=== PATIENT | male | born 1960 | race Caucasian/White ===

== ENCOUNTER 2019-04-04 05:23 | Inpatient (IN) | payer OTHER ==
[2019-04-04 05:58] LABS: Absolute Lymphocytes (CBC) 1.9 K/uL (0.7-4.9); Absolute Monocytes 0.8 K/uL (0.1-1.3); Absolute Neutrophil 8.6 K/uL (1.8-8.0); Basophils % 0.6 % (0-1.3); Eosinophils % 0.4 % (0-4.4); Hematocrit 46.9 % (39.6-49.0); Lymphocytes % 16.3 % (15.3-44.8); MPV 7.8 fL (7.6-11.3); Monocytes % 7.4 % (3.3-12.3)
[2019-04-04] MEDS ORDERED: ONDANSETRON 4 MG/2 ML VIAL ONE (06:09)
[2019-04-04] MEDS ORDERED: MORPHINE 4 MG/ML SYR ONE (06:09)
[2019-04-04 06:17] LABS: Albumin 3.5 g/dL (3.4-5.0); Bilirubin Direct 0.1 mg/dL (0-0.2); Bilirubin Total 0.4 mg/dL (0.2-1.0); Potassium 3.8 mmol/L (3.5-5.1); Protein, Total 8.3 g/dL (6.4-8.2)
[2019-04-04] MEDS ORDERED: LORazepam 2 MG/ML VIAL ONE ×2 (06:39→09:01)
[2019-04-04 07:13] LABS: Urine Blood NEGATIVE (NEG); Urine Glucose NEGATIVE (NEG); Urine Protein 1+ (NEG); Urine pH 6.5 (5.0-7.0)
[2019-04-04 07:25] LABS: Urine RBC NONE SEEN /HPF (NONE SEEN)
[2019-04-04 07:26] LABS: Urine Amorphous Sediment 2+ /HPF (NONE SEEN); Urine Bacteria <20 /HPF (NONE SEEN); Urine Culture Reflex Order NOT NEEDED
--- NOTE | 2019-04-04 08:13 | EDPHYS ---
Physician Documentation [facility] Name: Chon Lopez Age: 58 yrs Sex: Male : 1960 Arrival Date: 04/04/2019 Time: 05:27 Bed 5 Private MD: ED Physician Laith Albarado HPI: 04/04 06:53 This 58 yrs old Male presents to ER via Ambulatory with complaints of snw Abdominal Pain. 06:53 The patient presents with abdominal pain in the left upper quadrant, in the left lower snw quadrant. Onset: The symptoms/episode began/occurred suddenly, 2 day(s) ago, and became persistent. The symptoms do not radiate. Associated signs and symptoms: Pertinent positives: nausea and vomiting. The symptoms are described as constant, with exacerbations. Severity of pain: At its worst the pain was moderate severe. It is unknown whether or not the patient has had similar symptoms in the past. The patient has not recently seen a physician. Historical: - Allergies: 05:37 No Known Allergies; bb - Home Meds: 05:37 None [Active]; bb - PMHx: 05:37 Kidney stones; bb - PSHx: 05:37 Appendectomy; shoulder surgery; bb - Immunization history:: Adult Immunizations up to date. - Social history:: Smoking status: Patient/guardian denies using tobacco. - Ebola Screening: : No symptoms or risks identified at this time. ROS: 06:52 Constitutional: Negative for fever, chills, and weight loss, Eyes: Negative for injury, snw pain, redness, and discharge, ENT: Negative for injury, pain, and discharge, Neck: Negative for injury, pain, and swelling, Cardiovascular: Negative for chest pain, palpitations, and edema, Respiratory: Negative for shortness of breath, cough, wheezing, and pleuritic chest pain, Back: Negative for injury and pain, : Negative for injury, bleeding, discharge, and swelling, MS/Extremity: Negative for injury and deformity, Skin: Negative for injury, rash, and discoloration, Neuro: Negative for headache, weakness, numbness, tingling, and seizure. 06:52 Abdomen/GI: Positive for abdominal pain, nausea, vomiting, of the left upper quadrant and left lower quadrant. Exam: 06:49 Constitutional: This is a well developed, well nourished patient who is awake, alert, snw and anxious. Head/Face: Normocephalic, atraumatic. Eyes: Pupils equal round and reactive to light, extra-ocular motions intact. Lids and lashes normal. Conjunctiva and sclera are non-icteric and not injected. Cornea within normal limits. Periorbital areas with no swelling, redness, or edema. ENT: Nares patent. No nasal discharge, no septal abnormalities noted. Tympanic membranes are normal and external auditory canals are clear. Oropharynx with no redness, swelling, or masses, exudates, or evidence of obstruction, uvula midline. Mucous membranes moist. Neck: Trachea midline, no thyromegaly or masses palpated, and no cervical lymphadenopathy. Supple, full range of motion without nuchal rigidity, or vertebral point tenderness. No Meningismus. Chest/axilla: Normal chest wall appearance and motion. Nontender with no deformity. No lesions are appreciated. Cardiovascular: Regular rate and rhythm with a normal S1 and S2. No gallops, murmurs, or rubs. Normal PMI, no JVD. No pulse deficits. 06:49 Back: No spinal tenderness. No costovertebral tenderness. Full range of motion. Skin: Warm, dry with normal turgor. Normal color with no rashes, no lesions, and no evidence of cellulitis. MS/ Extremity: Pulses equal, no cyanosis. Neurovascular intact. Full, normal range of motion. Neuro: Awake and alert, GCS 15, oriented to person, place, time, and situation. Cranial nerves II-XII grossly intact. Motor strength 5/5 in all extremities. Sensory grossly intact. Cerebellar exam normal. Normal gait. Psych: Awake, alert, with orientation to person, place and time. Behavior, mood, and affect are within normal limits. 06:49 Respiratory: the patient does not display signs of respiratory distress, Respirations: shallow respirations, tachypnea, Breath sounds: are clear throughout. 06:49 Abdomen/GI: Inspection: obese Bowel sounds: diminished, in the left upper quadrant and left lower quadrant, Palpation: moderate abdominal tenderness, in all quadrants. Vital Signs: 05:37 BP 155 / 99; Pulse 103; Resp 18 S; Temp 98.1(O); Pulse Ox 96% on R/A; Weight 102.06 kg bb (R); Height 5 ft. 10 in. (177.80 cm) (R); Pain 5/10; 06:30 Pulse Ox 90% on R/A; rr5 06:35 Pulse Ox 98% on 2 lpm NC; rr5 06:45 BP 125 / 97; Pulse 95; Resp 15; Pulse Ox 98% on 2 lpm NC; Pain 1/10; rr5 08:55 BP 145 / 104; Pulse 110; Resp 16; Pulse Ox 95% on 2 lpm NC; ae4 10:03 BP 127 / 98; Pulse 103; Resp 16; Pulse Ox 95% on 3 lpm NC; ae4 11:00 BP 128 / 98; Pulse 99; Resp 16; Pulse Ox 96% on 3 lpm NC; ae4 05:37 Body Mass Index 32.28 (102.06 kg, 177.80 cm) bb MDM: 06:14 Patient medically screened. snw 08:09 Data reviewed: vital signs, nurses notes. Data interpreted: Pulse oximetry: on room air snw is 98 %. Interpretation: normal. Counseling: I had a detailed discussion with the patient and/or guardian regarding: the historical points, exam findings, and any diagnostic results supporting the discharge/admit diagnosis, the presence of at least one elevated blood pressure reading (>120/80) during this emergency department visit, lab results, radiology results, the need for further work-up and treatment in the hospital. Physician consultation: Betsy Cook MD was called at 08:10, regarding admission, to the medical/surgical unit. 08:10 Physician consultation: Ashley Jara MD was called at 08:10, was contacted at 08:10, snw regarding admission, to the medical/surgical unit. left message. 04/04 05:41 Order name: Basic Metabolic Panel; Complete Time: 06:40 gs 04/04 05:41 Order name: CBC with Diff; Complete Time: 06:40 gs 04/04 05:41 Order name: Hepatic Function; Complete Time: 06:40 gs 04/04 05:41 Order name: Lipase; Complete Time: 06:40 gs 04/04 05:41 Order name: Urine Microscopic Only; Complete Time: 07:31 gs 04/04 07:09 Order name: Urine Dipstick--Ancillary (enter results); Complete Time: 07:17 bd 04/04 05:41 Order name: CT Abd/Pelvis - Without Contrast; Complete Time: 11:28 gs 04/04 10:24 Order name: Basic Metabolic Panel EDMS 04/04 10:24 Order name: Basic Metabolic Panel EDMS 04/04 10:24 Order name: CBC with Automated Diff EDMS 04/04 10:24 Order name: CBC with Automated Diff EDMS 04/04 10:24 Order name: Liver (Hepatic) Function EDMS 04/04 10:24 Order name: Liver (Hepatic) Function EDMS 04/04 05:41 Order name: IV Saline Lock; Complete Time: 05:48 gs 04/04 05:41 Order name: Labs collected and sent; Complete Time: 05:48 gs 04/04 05:41 Order name: Urine Dipstick-Ancillary (obtain specimen); Complete Time: 07:03 gs 04/04 07:52 Order name: NPO; Complete Time: 08:01 snw 04/04 07:52 Order name: NG Tube; Complete Time: 08:01 snw 04/04 10:24 Order name: NPO EDMS Administered Medications: 05:58 Drug: Zofran 4 mg Route: IVP; Site: right forearm; ea 06:49 Follow up: Response: No adverse reaction rr5 06:00 Drug: morphine 4 mg Route: IVP; Site: right forearm; ea 06:49 Follow up: Response: No adverse reaction rr5 06:30 Drug: Ativan 1 mg Route: IVP; Site: right forearm; rr5 07:03 Follow up: Response: Other; Patient appears relxed, states he feels better. ae4 08:15 Drug: Flagyl 500 mg Volume: 100 ml; Route: IVPB; Rate: 200 ml/hr; Infused Over: 30 ae4 mins; Site: right wrist; 09:24 Follow up: Response: No adverse reaction; IV Status: Completed infusion ae4 08:30 Drug: Cipro 400 mg Volume: 200 ml; Route: IVPB; Infused Over: 60 mins; Site: right ae4 wrist; 09:30 Follow up: IV Status: Completed infusion ae4 08:32 Drug: Promethazine 6.25 mg Route: IVP; Site: right wrist; ae4 09:25 Follow up: Response: Nausea is decreased ae4 08:46 Drug: Ativan 1 mg Route: IVP; Site: right wrist; ae4 09:24 Follow up: Response: Other; Patient appears more relaxed, is lying in bed resting with ae4 eyes closed, respirations are even and unlabored. is at bedside. 08:46 Drug: Viscous Lidocaine Liquid (4 %) 5 ml Route: Mucous Membrane; ae4 Disposition: 08:49 Co-signature as Attending Physician, Laith Albarado MD Spoke with Dr. Butler, will admit to rn hospitalist, will see patient.. Disposition: 04/04/19 08:12 Hospitalization ordered by Jerry Butler for Inpatient Admission. Preliminary diagnosis is Small Bowel Obstruction. - Bed requested for Telemetry/MedSurg (Inpatient). - Status is Inpatient Admission. sv - Condition is Stable. - Problem is new. - Symptoms are unchanged. UTI on Admission? No Signatures: Dispatcher [employer] EDMS Taina Rivera RN Portia Moran RN RN dw Therrien, Shelly, NON EMERGENCY SERVICES AMBULANCE DRIVER-C NON EMERGENCY SERVICES AMBULANCE DRIVER-Csnw Teresa Madrid RN Laith Kwan MD MD rn Antunez, Elena, RN RN ea Starr, Gregory, MD MD gs Roque, Raymond RN RN rr5 Santana Almonte RN RN ae4 Corrections: (The following items were deleted from the chart) 10:12 08:12 Hospitalization Ordered by Ashley Jara MD for Inpatient Admission. Preliminary snw diagnosis is Small Bowel Obstruction. Bed requested for Telemetry/MedSurg (Inpatient). Status is Inpatient Admission. Condition is Stable. Problem is new. Symptoms are unchanged. UTI on Admission? No. snw 11:22 10:12 04/04/2019 08:12 Hospitalization Ordered by Jerry Butler MD for Inpatient dw Admission. Preliminary diagnosis is Small Bowel Obstruction. Bed requested for Telemetry/MedSurg (Inpatient). Status is Inpatient Admission. Condition is Stable. Problem is new. Symptoms are unchanged. UTI on Admission? No. snw 11:48 11:22 04/04/2019 08:12 Hospitalization Ordered by Jerry Butler MD for Inpatient sv Admission. Preliminary diagnosis is Small Bowel Obstruction. Bed requested for Telemetry/MedSurg (Inpatient). Status is Inpatient Admission. Condition is Stable. Problem is new. Symptoms are unchanged. UTI on Admission? No. dw
--- NOTE | 2019-04-04 08:13 | ER ---
Nurse's Notes [facility] Name: Chon Lopez Age: 58 yrs Sex: Male : 1960 Arrival Date: 04/04/2019 Time: 05:27 Bed 5 Private MD: Diagnosis: Small Bowel Obstruction Presentation: 04/04 05:33 Presenting complaint: Patient states: he was nauseous x 2 days then started having bb abdominal pain and vomited multiple times Tuesday night but not since then, he has been taking over the counter medications with no relief and his abdomen feels bloated, his last bowel movement was last night but was less than normal and he has not been eating very much. The pain is constant but worsens intermittently. Transition of care: patient was not received from another setting of care. Onset of symptoms was April 02, 2019. Risk Assessment: Do you want to hurt yourself or someone else? Patient reports no desire to harm self or others. Initial Sepsis Screen: Does the patient meet any 2 criteria? No. Patient's initial sepsis screen is negative. Does the patient have a suspected source of infection? No. Patient's initial sepsis screen is negative. Care prior to arrival: None. 05:33 Method Of Arrival: Ambulatory bb 05:33 Acuity: TAWANNA 3 bb Historical: - Allergies: 05:37 No Known Allergies; bb - Home Meds: 05:37 None [Active]; bb - PMHx: 05:37 Kidney stones; bb - PSHx: 05:37 Appendectomy; shoulder surgery; bb - Immunization history:: Adult Immunizations up to date. - Social history:: Smoking status: Patient/guardian denies using tobacco. - Ebola Screening: : No symptoms or risks identified at this time. Screenin:32 Abuse screen: Denies threats or abuse. Nutritional screening: No deficits noted. ea Tuberculosis screening: No symptoms or risk factors identified. Fall Risk None identified. Assessment: 05:40 General: Appears in no apparent distress. uncomfortable, Behavior is calm, cooperative, rr5 appropriate for age. Pain: Complains of pain in abdomen Pain does not radiate. Pain currently is 5 out of 10 on a pain scale. Quality of pain is described as aching, Pain began gradually, Is intermittent. 05:40 Neuro: Level of Consciousness is awake, alert, obeys commands, Oriented to person, rr5 place, time, situation, Appropriate for age. Cardiovascular: Capillary refill < 3 seconds Patient's skin is warm and dry. Respiratory: Airway is patent Respiratory effort is even, unlabored, Respiratory pattern is regular, symmetrical. GI: Abdomen is round Bowel sounds present X 4 quads. Guarding noted Reports lower abdominal pain, upper abdominal pain, bloating, nausea, vomiting. : No signs and/or symptoms were reported regarding the genitourinary system. EENT: No signs and/or symptoms were reported regarding the EENT system. Derm: Skin is intact, Skin temperature is warm. Musculoskeletal: Capillary refill < 3 seconds, Range of motion: intact in all extremities. 06:30 Reassessment: Patient appears in no apparent distress at this time. hooked to oxygen at rr5 2 liters via nasal cannula with O2 saturation of 90%. 06:45 Reassessment: Patient appears in no apparent distress at this time. Patient is alert, rr5 oriented x 3, equal unlabored respirations, skin warm/dry/pink. awaiting for CT result. Patient states feeling better. Patient states symptoms have improved. 07:04 Reassessment: Patient appears in no apparent distress at this time. Patient states ae4 feeling better. Patient states symptoms have improved. 08:57 Reassessment: Patient appears more relaxed, patient states he feels better. Patient is ae4 lying in bed with eyes closed, respirations are even and unlabored. is at bedside. Patient states feeling better. 09:25 Reassessment: Patient is lying in bed with eyes closed, respirations are even and ae4 unlabored, oxygen saturation at 89% on 2 L. O2 increased to 3 L, O2 now at 95%. 10:05 Reassessment: Patient and/or family updated on plan of care and expected duration. Pain ae4 level reassessed. Patient states feeling better. 10:05 GI: 200 mls dark brown gastric contents in suction reservoir. ae4 11:38 Reassessment: Report called to Lou receiving nurse via telephone. ae4 Vital Signs: 05:37 BP 155 / 99; Pulse 103; Resp 18 S; Temp 98.1(O); Pulse Ox 96% on R/A; Weight 102.06 kg bb (R); Height 5 ft. 10 in. (177.80 cm) (R); Pain 5/10; 06:30 Pulse Ox 90% on R/A; rr5 06:35 Pulse Ox 98% on 2 lpm NC; rr5 06:45 BP 125 / 97; Pulse 95; Resp 15; Pulse Ox 98% on 2 lpm NC; Pain 1/10; rr5 08:55 BP 145 / 104; Pulse 110; Resp 16; Pulse Ox 95% on 2 lpm NC; ae4 10:03 BP 127 / 98; Pulse 103; Resp 16; Pulse Ox 95% on 3 lpm NC; ae4 11:00 BP 128 / 98; Pulse 99; Resp 16; Pulse Ox 96% on 3 lpm NC; ae4 05:37 Body Mass Index 32.28 (102.06 kg, 177.80 cm) bb ED Course: 05:20 No provider procedures requiring assistance completed. Inserted saline lock: 20 gauge rr5 in right forearm, using aseptic technique. Blood collected. 05:27 Patient arrived in ED. am2 05:31 Brandon Madrid, JENNY is Primary Nurse. rr5 05:33 Patient has correct armband on for positive identification. Placed in gown. Bed in low ea position. Call light in reach. 05:33 Arm band placed on right wrist. Patient placed in an exam room, on a stretcher, on ea pulse oximetry. 05:36 Triage completed. bb 06:02 Gudelia Monte FNP-C is PHCP. snw 06:02 Laith Albarado MD is Attending Physician. snw 06:18 CT completed. Patient tolerated procedure well. Patient moved to CT via stretcher. Patient moved back from CT. 06:25 CT Abd/Pelvis - Without Contrast In Process Unspecified. EDMS 08:11 Ashley Jara MD is Hospitalizing Provider. snw 08:42 NGT: inserted 12 Fr. via right nare. verified return of gastric contents, to ae4 intermittent suction. Returned gastric contents. Dark brown gastric contents Patient tolerated poorly. 10:12 Hospitalizing Provider role handed off by Ashley Jara MD snw 10:12 Jerry Butler MD is Hospitalizing Provider. snw Administered Medications: 05:58 Drug: Zofran 4 mg Route: IVP; Site: right forearm; ea 06:49 Follow up: Response: No adverse reaction rr5 06:00 Drug: morphine 4 mg Route: IVP; Site: right forearm; ea 06:49 Follow up: Response: No adverse reaction rr5 06:30 Drug: Ativan 1 mg Route: IVP; Site: right forearm; rr5 07:03 Follow up: Response: Other; Patient appears relxed, states he feels better. ae4 08:15 Drug: Flagyl 500 mg Volume: 100 ml; Route: IVPB; Rate: 200 ml/hr; Infused Over: 30 ae4 mins; Site: right wrist; 09:24 Follow up: Response: No adverse reaction; IV Status: Completed infusion ae4 08:30 Drug: Cipro 400 mg Volume: 200 ml; Route: IVPB; Infused Over: 60 mins; Site: right ae4 wrist; 09:30 Follow up: IV Status: Completed infusion ae4 08:32 Drug: Promethazine 6.25 mg Route: IVP; Site: right wrist; ae4 09:25 Follow up: Response: Nausea is decreased ae4 08:46 Drug: Ativan 1 mg Route: IVP; Site: right wrist; ae4 09:24 Follow up: Response: Other; Patient appears more relaxed, is lying in bed resting with ae4 eyes closed, respirations are even and unlabored. is at bedside. 08:46 Drug: Viscous Lidocaine Liquid (4 %) 5 ml Route: Mucous Membrane; ae4 Intake: Outcome: 08:12 Decision to Hospitalize by Provider. snw 11:48 Patient left the ED. sv Signatures: Dispatcher [employer] EDTaina Richards RN Gudelia Gomez, MEDICAL CLERK-C MEDICAL CLERK-Csnw Refugio Alberto Brenda RN RN Grace Sierra Elena, RN RN ea Roque, Raymond RN RN rr5 Santana Almonte RN RN ae4
[2019-04-04] MEDS ORDERED: METRONIDAZOLE 500mg IVPB 500 MG/100 ML BAG IV ONE (08:23)
[2019-04-04] MEDS ORDERED: CIPROFLOXACIN 400mg IV 400 MG/200 ML BAG IV ONE (08:23)
[2019-04-04] MEDS ORDERED: PROMETHAZINE 25 MG/ML VIAL ONE (08:50)
[2019-04-04] MEDS ORDERED: LIDOCAINE VISCOUS 2% SOLN 15 ML UDC ONE (09:02)
--- NOTE | 2019-04-04 09:30 | RAD REPORT ---
EXAM DESCRIPTION: CT Abdomen and Pelvis Without Intravenous Contrast CLINICAL HISTORY: The patient is 58 years old and is Male; ABD PAIN TECHNIQUE: Axial computed tomography images of the abdomen and pelvis without intravenous contrast. Sagittal and coronal reformatted images were created and reviewed. This CT exam was performed usi ng one or more of the following dose reduction techniques: automated exposure control, adjustment o f the mA and/or kV according to patient size, and/or use of iterative reconstruction technique. COMPARISON: CT of the abdomen and pelvis July 23, 2016.. FINDINGS: LUNG BASES: Unremarkable. No mass. No consolidation. ABDOMEN: LIVER: There is a diffuse decrease in hepatic parenchymal density, consistent with fatty infiltr ation. The liver is heterogeneous. GALLBLADDER AND BILE DUCTS: No calcified stones. No ductal dilation. PANCREAS: Fatty infiltration of the pancreas is noted. No ductal dilation. SPLEEN: Unremarkable. ADRENALS: Unremarkable. No mass. KIDNEYS AND URETERS: Punctate right intrarenal calcification is present. There is no hydronephro sis or hydroureter of either kidney. STOMACH AND BOWEL: The stomach is distended with fluid and air. The proximal small bowel is deco mpressed. Several dilated fluid-filled loops of small bowel within the midabdomen with air-fluid leve ls are present. Transition to normal caliber bowel is noted within the right mid abdomen the remainde r of the small bowel is normal in appearance. Stool is present throughout the colon. Scattered coloni c diverticula are noted without surrounding inflammation. PELVIS: APPENDIX: The appendix is normal in caliber without surrounding inflammation. BLADDER: The bladder is not well distended. REPRODUCTIVE: Unremarkable as visualized. ABDOMEN and PELVIS: INTRAPERITONEAL SPACE: Unremarkable. No free air. No significant fluid collection. BONES/JOINTS: No acute fracture. SOFT TISSUES: The soft tissues are normal. VASCULATURE: Unremarkable. No abdominal aortic aneurysm. LYMPH NODES: Unremarkable. No enlarged lymph nodes. IMPRESSION: 1. Findings suggestive of a small bowel obstruction involving multiple mid small bowel loops. 2. Chronic findings as above. Electronically signed by: Kamala Lee MD 04/04/2019 6:40 AM CDT Due to temporary technical issues with the PACS/Fluency reporting system, reports are being signed by the in house radiologist as a courtesy to ensure prompt reporting. The interpreting radiologist is luke sandoval responsible for the content of the report.
[2019-04-04] MEDS ORDERED: ONDANSETRON 4 MG/2 ML VIAL IV PRN (10:38)
[2019-04-04] MEDS: MORPHINE 4 MG/ML SYR IV PRN ×3 (12:42→23:10)
[2019-04-04] MEDS: D5 0.45 NS 1,000 ML IV SCH ×3 (12:47→23:10)
--- NOTE | 2019-04-04 15:13 | CON ---
Date of Consultation: 04/04/2019 Reason For Consultation: Possible small bowel obstruction. History Of Present Illness: The patient is a 58-year-old gentleman comes in with left lower quadrant abdominal pain, started 2 days ago. Associated with nausea, occasional vomiting. Last bowel moveme nt was last night. He is passing gas. The patient has not had similar episodes in the past. There is no sore throat, runny nose, cough, headaches, or dizziness. No chest pain. No fever or chills. Review of Systems: Otherwise unremarkable. Past Medical History: Has kidney stones. Past Surgical History: Appendectomy and shoulder surgery. Allergies: NONE. Social History: The patient does not smoke. Family History: Noncontributory. Physical Examination: Vital Signs: Stable. His heart rate is slightly elevated at . He is afebrile. General: He is awake, alert, oriented x3. Head and Neck: Cranial nerves 2 through 12 grossly within normal limits. Neck: No neck masses. No JVD. Throat clear. Neck is supple. Chest: Clear. Heart: S1 and S2. Abdomen: Soft, slightly distended. Slightly hypoactive bowel sounds. No peritonitis. Extremity: Adequate perfusion. Nontender. Neuro: Nonfocal. CT of the abdomen and pelvis reviewed with the radiologist, and findings suggestive of partial small bowel obstruction. Proximal small bowel is decompressed. Several dilated fluid filled loops of smal l bowel within the mid abdomen with air-fluid levels transition, normal caliber is noted within the r ight mid abdomen. The remainder of the small bowel is normal in appearance. Stool was present throu ghout the colon with no inflammation. White count is 11.5 with slight left shift. CO2 is 24, BUN is 19. LFTs are within normal limits. Assessment: Likely partial small bowel obstruction. Plan: Admit, n.p.o., IV fluids, IV antibiotics, NG tube. We will do serial abdominal exams. We stephan l check another abdominal x-ray tomorrow morning. I believe this is partial so once the patient star ts having normal bowel function begin with NG tube and start him on diet. Should he not improve with conservative measures, he may need surgical intervention. /MODL Voice ID: [id number] Report ID: [id number]
[2019-04-04] MEDS: METRONIDAZOLE 500mg IVPB 500 MG/100 ML BAG IV SCH (16:47)
[2019-04-04] MEDS ORDERED: PHENOL 1.4% ORAL SPRAY 180ML MM PRN (17:47)
[2019-04-04] MEDS: CIPROFLOXACIN 400mg IV 400 MG/200 ML BAG IV SCH (20:42)
[2019-04-05] MEDS: METRONIDAZOLE 500mg IVPB 500 MG/100 ML BAG IV SCH ×2 (00:58→08:12)
[2019-04-05 06:24] LABS: Absolute Lymphocytes (CBC) 1.9 K/uL (0.7-4.9); Absolute Monocytes 0.9 K/uL (0.1-1.3); Absolute Neutrophil 5.3 K/uL (1.8-8.0); Basophils % 0.5 % (0-1.3); Eosinophils % 4.5 % (0-4.4); Hematocrit 40.4 % (39.6-49.0); Lymphocytes % 22.2 % (15.3-44.8); MPV 7.8 fL (7.6-11.3); Monocytes % 10.9 % (3.3-12.3); RBC Red Blood Cell Count 4.54 M/uL (4.33-5.43)
[2019-04-05 06:44] LABS: Albumin 2.9 g/dL (3.4-5.0); Bilirubin Direct 0.1 mg/dL (0-0.2); Bilirubin Total 0.4 mg/dL (0.2-1.0); Protein, Total 7.1 g/dL (6.4-8.2)
[2019-04-05] MEDS: CIPROFLOXACIN 400mg IV 400 MG/200 ML BAG IV SCH (08:12)
[2019-04-05] MEDS: D5 0.45 NS 1,000 ML IV SCH (08:13)
--- NOTE | 2019-04-05 08:38 | RAD REPORT ---
EXAM DESCRIPTION: RAD - Abdomen W Erect - 04/05/2019 7:57 am CLINICAL HISTORY: Abdominal pain FINDINGS: Nasogastric tube is coiled within the stomach. Several mildly dilated loops of jejunum hav e decreased in caliber since April 04 CAT scan. Air is present throughout the colon. This is compatible with improvement in the small bowel obstruction Free air is not seen beneath diaphragm
[2019-04-05] MEDS: MORPHINE 4 MG/ML SYR IV PRN (09:04)
--- NOTE | 2019-04-06 04:48 | DS ---
Date of Discharge: 04/05/2019 Admitting Diagnosis: Partial small bowel obstruction. Discharge Diagnosis: Partial small bowel obstruction. Procedure Performed: None. Hospital Course: The patient is a 58-year-old gentleman who was admitted with abdominal pain, nausea , and vomiting. Workup revealed a partial small bowel obstruction. NG-tube placed. He continued to pass gas. Did not have bowel movement, but had no NG-tube output, was hungry, and is passing gas. X-ray showed marked improvement and therefore the patient will be given liquids. If tolerated, he wi ll be discharged home on liquid as he wants to go home and on antibiotics and slowly advance at home the diet and he was instructed to do so. Disposition: Home. Condition: Stable. Discharge Instructions: Clear liquid diet for a couple of days. Slowly advance on full liquids and then a high fiber diet. Cipro 500 mg p.o. q.12 hours, Flagyl 500 mg p.o. q.6 hours. Follow up in my office in 1 week, call for appointment. The patient was advised for a colonoscopy. JOSE RAMON/GARY Voice ID: [id number] Report ID: [id number]
== END 2019-04-05 15:30 | disposition home or self-care (01) | DRG 390 ==
LOC: ER 05:23 → ERHOLD 10:15 → 2ND 11:40
PROVIDERS: ADMIT Surgery; ATTEND Surgery
DX: K56.609 Unspecified intestinal obstruction, unspecified as to partial versus complete obstruction (principal); Z87.442 Personal history of urinary calculi
CPT/HCPCS: 36415; 74019; 74176; 80048; 80076; 81003; 81015; 83690; 85025; 99285; J0744; J2405; J2550

== ENCOUNTER 2019-06-09 17:53 | Emergency (ER) | payer OTHER ==
[2019-06-09] MEDS ORDERED: TETRACAINE HCL 0.5% 4ML OPTH ONE (18:16)
[2019-06-09] MEDS ORDERED: FLUORESCEIN SODIUM 1 MG/WRAP ONE (18:16)
--- NOTE | 2019-06-09 19:15 | RAD REPORT ---
EXAM DESCRIPTION: CT - CTORBIT CLINICAL HISTORY: eye pain Left eye pain and irritation COMPARISON: <Comparisons> TECHNIQUE: Axial 2 mm thick images of the face were obtained with sagittal and coronal reconstructio n images. All CT scans are performed using dose optimization technique as appropriate and may include automated exposure control or mA/KV adjustment according to patient size. FINDINGS: Both globes are normal in size without vitreous abnormality.No radiopaque foreign body see n in the orbit on either side. Retro-bulbar fat appears preserved bilaterally.Mild preseptal swelling is seen on the left.The parana rosalba sinuses and mastoids are clear. IMPRESSION: Mild left-sided preseptal swelling is suspected without radiopaque foreign body or globe abnormality.
--- NOTE | 2019-06-09 19:49 | ER ---
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 Transition of care: patient was not received from another setting of care. Onset of symptoms was June 09, 2019. Risk Assessment: Do you want to hurt yourself or someone else? Patient reports no desire to harm self or others. Initial Sepsis Screen: Does the patient meet any 2 criteria? No. Patient's initial sepsis screen is negative. Does the patient have a suspected source of infection? No. Patient's initial sepsis screen is negative. Care prior to arrival: None. 18:01 Method Of Arrival: Ambulatory la1 18:01 Acuity: TAWANNA 4 la1 Historical: - Allergies: 18:02 No Known Allergies; la1 - PMHx: 18:02 Kidney stones; la1 - Immunization history:: Adult Immunizations up to date. - Social history:: Smoking status: Patient/guardian denies using tobacco. - Ebola Screening: : No symptoms or risks identified at this time. Screenin:35 Abuse screen: Denies threats or abuse. Nutritional screening: No deficits noted. la1 Tuberculosis screening: No symptoms or risk factors identified. Fall Risk None identified. Assessment: 18:16 General: Appears in no apparent distress. Behavior is calm, cooperative. Pain: la1 Complains of pain in left eye. Neuro: Level of Consciousness is awake, alert, obeys commands, Oriented to person, place, time, situation. Cardiovascular: Patient's skin is warm and dry. Respiratory: Airway is patent Respiratory effort is even, unlabored, Respiratory pattern is regular, symmetrical. GI: No signs and/or symptoms were reported involving the gastrointestinal system. : No signs and/or symptoms were reported regarding the genitourinary system. EENT: Sclera/Cornea are reddened in outer aspect of conjuctiva of left eye and inner aspect of conjunctiva of left eye. 19:34 Reassessment: Patient appears in no apparent distress at this time. No changes from la1 previously documented assessment. Patient and/or family updated on plan of care and expected duration. Pain level reassessed. Patient is alert, oriented x 3, equal unlabored respirations, skin warm/dry/pink. Vital Signs: 18:02 BP 151 / 80; Pulse 76; Resp 16; Temp 97.5; Pulse Ox 98% on R/A; Weight 102.06 kg; la1 Height 5 ft. 10 in. (177.80 cm); 18:02 Body Mass Index 32.28 (102.06 kg, 177.80 cm) la1 Visual Acuity: 18:16 Left Eye Visual acuity 20/70, ; Right Eye Visual acuity 20/40, ; Both Eyes Visual la1 acuity 20/40; Without Lenses; ED Course: 17:54 Patient arrived in ED. ag5 17:54 Richa Cr DO is Private Physician. ag5 18:02 Triage completed. la1 18:02 Arm band placed on left wrist. la1 18:11 Eduin Damian PA is PHCP. jmm 18:11 Vasiliy Mayberry MD is Attending Physician. jm 18:16 Tim Patton, JENNY is Primary Nurse. la1 19:01 CT completed. Patient tolerated procedure well. Patient moved back from CT. mw3 19:03 Orbits Wo Con W/ Mpr In Process Unspecified. EDMS 19:35 Call light in reach. Side rails up X 1. la1 19:47 Adrian Howe MD is Referral Physician. [facility] 20:00 No provider procedures requiring assistance completed. Patient did not have IV access la1 during this emergency room visit. Administered Medications: 18:31 Drug: Fluorescein Strip 1 strip Route: Ophthalmic; Site: left eye; la1 18:31 Drug: Tetracaine Drops 0.5 % 1 drops Route: Ophthalmic; Site: left eye; la1 Outcome: 19:48 Discharge ordered by . jm 20:00 Discharged to home ambulatory. la1 20:00 Condition: stable 20:00 Discharge instructions given to patient, Instructed on discharge instructions, follow up and referral plans. medication usage, Demonstrated understanding of instructions, follow-up care, medications, Prescriptions given X 2. 20:00 Patient left the ED. la1 Signatures: Dispatcher [employer] EDMS Eduin Damian PA PA jmm Attema, Lee, RN RN [email or web address] Mona Roldan 3 Bernice Chen 5
--- NOTE | 2019-06-09 19:49 | EDPHYS ---
Physician Documentation [facility] Name: Chon Lopez Age: 58 yrs Sex: Male : 1960 Arrival Date: 06/09/2019 Time: 17:54 Bed 12 Private MD: Richa Cr H ED Physician Vasiliy Mayberry HPI: 06/09 18:13 This 58 yrs old Male presents to ER via Ambulatory with complaints of Eye jmm Problem. 18:13 The patient sustained. Onset: The symptoms/episode began/occurred yesterday. Duration: jmm the symptoms are continuous. Aggravated by opening eye. Associated signs and symptoms: Pertinent negatives: fever. This is a 58 year old male with no chronic medical conditions that presents to the ED with complaints of discomfort to his left eye. 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 Pain has increased today. Patient is UTD on immunization. Historical: - Allergies: 18:02 No Known Allergies; la1 - PMHx: 18:02 Kidney stones; la1 - Immunization history:: Adult Immunizations up to date. - Social history:: Smoking status: Patient/guardian denies using tobacco. - Ebola Screening: : No symptoms or risks identified at this time. ROS: 18:13 Constitutional: Negative for fever, chills, and weight loss. jmm 18:13 ENT: Negative for injury, pain, and discharge. 18:13 Cardiovascular: Negative for chest pain, palpitations, and edema, Respiratory: Negative for shortness of breath, cough, wheezing, and pleuritic chest pain. 18:13 Eyes: Positive for pain, redness. 18:13 All other systems are negative. Exam: 18:13 Constitutional: This is a well developed, well nourished patient who is awake, alert, jmm and in no acute distress. Head/Face: atraumatic. 18:13 ENT: Moist Mucus Membranes Cardiovascular: Regular rate and rhythm. No edema appreciated Respiratory: Normal respirations, no respiratory distress appreciated Abdomen/GI: Non distended, soft Back: Normal ROM Skin: General appearance color normal MS/ Extremity: Moves all extremities, no obvious deformities appreciated, no edema noted to the lower extremities Neuro: Awake and alert, normal gait Psych: Behavior is normal, Mood is normal, Patient is cooperative and pleasant 18:13 Eyes: Extraocular movements: intact throughout, Corneas: foreign body, on the left. Vital Signs: 18:02 BP 151 / 80; Pulse 76; Resp 16; Temp 97.5; Pulse Ox 98% on R/A; Weight 102.06 kg; la1 Height 5 ft. 10 in. (177.80 cm); 18:02 Body Mass Index 32.28 (102.06 kg, 177.80 cm) la1 Visual Acuity: 18:16 Left Eye Visual acuity 20/70, ; Right Eye Visual acuity 20/40, ; Both Eyes Visual la1 acuity 20/40; Without Lenses; MDM: 18:13 Patient medically screened. chava 19:45 Data reviewed: vital signs, nurses notes. Counseling: I had a detailed discussion with sarah the patient and/or guardian regarding: the historical points, exam findings, and any diagnostic results supporting the discharge/admit diagnosis, radiology results, the need for outpatient follow up, to return to the emergency department if symptoms worsen or persist or if there are any questions or concerns that arise at home. ED course: CT negative. Pain is relieved with tetracaine. Visible fb removed with q tip. I discussed the patient with Dr. Howe whom will follow up with patient in clinic tomorrow. Patient is otherwise given strict return precautions. Patient understood and agrees with the plan of care. . 06/09 18:42 Order name: Orbits Wo Con W/ Mpr; Complete Time: 19:19 EDMS 06/09 18:31 Order name: Visual Acuity; Complete Time: 18:31 la1 Administered Medications: 18:31 Drug: Fluorescein Strip 1 strip Route: Ophthalmic; Site: left eye; la1 18:31 Drug: Tetracaine Drops 0.5 % 1 drops Route: Ophthalmic; Site: left eye; la1 Disposition: 06/09/19 19:48 Discharged to Home. Impression: Corneal Abrasion, Corneal Foreign Body. - Condition is Stable. - Discharge Instructions: Corneal Abrasion, Eye Foreign Body. - Prescriptions for Erythromycin 5 mg/gram (0.5 %) Ophthalmic Ointment - apply 1 centimeter by OPHTHALMIC route 2-3 times daily for 7 days; 1 tube. Ultracet 37.5- 325 mg Oral Tablet - take 1 tablet by ORAL route every 6 hours - for up to 5 days; do not exceed 8 tablets per day.; 12 tablet. - Medication Reconciliation Form, Thank You Letter, Antibiotic Education, Prescription Opioid Use form. - Follow up: Adrian Howe MD; When: Tomorrow; Reason: Recheck today's complaints, Continuance of care, Re-evaluation by your physician. Addendum: 06/11/2019 10:02 Co-signature as Attending Physician, Vasiliy Mayberry MD I agree with the assessment and c caballero plan of care. Signatures: Dispatcher [employer] [facility] Vasiliy Mayberry MD MD cha Mickail, Joel, PA PA [facility] Tim Patton RN RN la1 Corrections: (The following items were deleted from the chart) 06/09 18:41 18:36 CT-ORBITS WITHOUT CONTRAST ordered. [facility] 20:00 19:48 06/09/2019 19:48 Discharged to Home. Impression: Corneal Abrasion; Corneal la1 Foreign Body. Condition is Stable. Forms are Medication Reconciliation Form, Thank You Letter, Antibiotic Education, Prescription Opioid Use. Follow up: Adrain Howe; When: Tomorrow; Reason: Recheck today's complaints, Continuance of care, Re-evaluation by your physician. [facility]
== END 2019-06-09 20:00 | disposition home or self-care (01) ==
LOC: ER 17:53
DX: T15.02XA Foreign body in cornea, left eye, initial encounter (principal)
CPT/HCPCS: 70480; 76377; 99284

== ENCOUNTER 2019-12-16 08:46 | Emergency (ER) | payer OTHER ==
[2019-12-16] MEDS ORDERED: NA CHLORIDE 0.9% 1,000 ML ONE (09:35)
[2019-12-16] MEDS ORDERED: CEFTRIAXONE/SWI 1gm 1 GM/10 ML SYR ONE ×2 (09:35→10:16)
[2019-12-16] MEDS ORDERED: IBUPROFEN 400 MG TAB ONE (09:35)
[2019-12-16] MEDS ORDERED: AZITHROMYCIN 250 MG TAB ONE (09:35)
[2019-12-16] MEDS ORDERED: OSELTAMIVIR 75 MG CAP ONE (09:35)
[2019-12-16 09:57] LABS: Absolute Lymphocytes (CBC) 1.7 K/uL (0.7-4.9); Basophils % 0.6 % (0-1.3); Hematocrit 43.1 % (39.6-49.0); Lymphocytes % 8.8 % (15.3-44.8); RBC Red Blood Cell Count 4.88 M/uL (4.33-5.43)
[2019-12-16 10:09] LABS: Albumin 3.7 g/dL (3.4-5.0); Bilirubin Total 0.8 mg/dL (0.2-1.0); Potassium 3.8 mmol/L (3.5-5.1); Protein, Total 8.3 g/dL (6.4-8.2)
--- NOTE | 2019-12-16 10:10 | RAD REPORT ---
EXAM DESCRIPTION: RAD - Chest Pa And Lat (2 Views) - 12/16/2019 9:57 am CLINICAL HISTORY: Cough;Fever;Dyspnea COMPARISON: April 2012 TECHNIQUE: Frontal and lateral views of the chest were obtained. FINDINGS: The lungs are clear. Heart size is normal and central vasculature is within normal limit s. No pleural effusion or pneumothorax seen. No acute bony finding noted. No aortic abnormality. IMPRESSION: No acute cardiopulmonary process. No suspicious change from comparison.
--- NOTE | 2019-12-16 10:17 | EDPHYS ---
Physician Documentation [facility] Name: Chon Lopez Age: 59 yrs Sex: Male : 1960 Arrival Date: 12/16/2019 Time: 08:48 Bed 18 Private MD: Richa Cr H ED Physician Vasiliy Mayberry HPI: 12/16 09:14 This 59 yrs old Male presents to ER via Ambulatory with complaints of Body chava Aches, Cough, Chest Congestion. 09:14 The patient or guardian reports airway noise, cough. Onset: The symptoms/episode chava began/occurred 2 day(s) ago. Severity of symptoms: At their worst the symptoms were moderate, in the emergency department the symptoms are unchanged. Modifying factors: The symptoms are alleviated by nothing, the symptoms are aggravated by nothing. Associated signs and symptoms: Pertinent positives: fever, nausea, rhinorrhea, sore throat. The patient has not experienced similar symptoms in the past. Historical: - Allergies: 09:03 No Known Allergies; ss - Home Meds: 09:03 None [Active]; ss - PMHx: 09:03 None; ss - PSHx: 09:03 Appendectomy; Tonsillectomy; bilateral shoulder repair; ss - Immunization history:: Adult Immunizations up to date. - Coronavirus screen:: The patient has NOT traveled to [place] in the past 14 days. Proceed with normal triage process as indicated. - Social history:: Smoking status: Patient denies any tobacco usage or history of. - Family history:: not pertinent. - Ebola Screening: : Patient denies exposure to infectious person Patient denies travel to an Ebola-affected area in the 21 days before illness onset. ROS: 09:14 Eyes: Negative for injury, pain, redness, and discharge, Neck: Negative for injury, chava pain, and swelling, Cardiovascular: Negative for chest pain, palpitations, and edema, Abdomen/GI: Negative for abdominal pain, nausea, vomiting, diarrhea, and constipation, Back: Negative for injury and pain, : Negative for injury, bleeding, discharge, and swelling, MS/Extremity: Negative for injury and deformity, Skin: Negative for injury, rash, and discoloration, Psych: Negative for depression, anxiety, suicide ideation, homicidal ideation, and hallucinations, Allergy/Immunology: Negative for hives, rash, and allergies, Endocrine: Negative for neck swelling, polydipsia, polyuria, polyphagia, and marked weight changes, Hematologic/Lymphatic: Negative for swollen nodes, abnormal bleeding, and unusual bruising. 09:14 Constitutional: Positive for body aches, chills, fatigue, fever, malaise, poor PO intake. 09:14 Cardiovascular: Positive for palpitations. 09:14 Respiratory: Positive for cough, shortness of breath. 09:14 Neuro: Positive for weakness. Exam: 09:14 Head/Face: Normocephalic, atraumatic. Eyes: Pupils equal round and reactive to light, chava extra-ocular motions intact. Lids and lashes normal. Conjunctiva and sclera are non-icteric and not injected. Cornea within normal limits. Periorbital areas with no swelling, redness, or edema. ENT: Nares patent. No nasal discharge, no septal abnormalities noted. Tympanic membranes are normal and external auditory canals are clear. Oropharynx with no redness, swelling, or masses, exudates, or evidence of obstruction, uvula midline. Mucous membranes moist. Neck: Trachea midline, no thyromegaly or masses palpated, and no cervical lymphadenopathy. Supple, full range of motion without nuchal rigidity, or vertebral point tenderness. No Meningismus. Chest/axilla: Normal chest wall appearance and motion. Nontender with no deformity. No lesions are appreciated. Respiratory: Lungs have equal breath sounds bilaterally, clear to auscultation and percussion. No rales, rhonchi or wheezes noted. No increased work of breathing, no retractions or nasal flaring. Abdomen/GI: Soft, non-tender, with normal bowel sounds. No distension or tympany. No guarding or rebound. No evidence of tenderness throughout. Back: No spinal tenderness. No costovertebral tenderness. Full range of motion. Male : Normal genitalia with no discharge or lesions. Skin: Warm, dry with normal turgor. Normal color with no rashes, no lesions, and no evidence of cellulitis. MS/ Extremity: Pulses equal, no cyanosis. Neurovascular intact. Full, normal range of motion. Neuro: Awake and alert, GCS 15, oriented to person, place, time, and situation. Cranial nerves II-XII grossly intact. Motor strength 5/5 in all extremities. Sensory grossly intact. Cerebellar exam normal. Normal gait. Psych: Awake, alert, with orientation to person, place and time. Behavior, mood, and affect are within normal limits. 09:14 Constitutional: The patient appears febrile. 09:14 Cardiovascular: Rate: tachycardic, Rhythm: regular, Pulses: Pulses are 4+ in bilateral radial, brachial, femoral, popliteal, posterior tibial and and dorsalis pedis arteries.. Heart sounds: normal, Edema: is not appreciated, JVD: is not appreciated. Vital Signs: 08:59 BP 114 / 81; Pulse 119; Resp 20; Temp 100.5; Pulse Ox 96% on R/A; Weight 104.33 kg; ss Height 5 ft. 10 in. (177.80 cm); Pain 4/10; 10:36 BP 120 / 79; Pulse 97; Resp 19; Temp 98.8(O); Pulse Ox 95% on R/A; ae4 08:59 Body Mass Index 33.00 (104.33 kg, 177.80 cm) ss MDM: 08:51 Patient medically screened. [facility] 09:16 Data reviewed: vital signs, nurses notes, lab test result(s), radiologic studies. [facility] 12/16 09:14 Order name: CBC with Diff [facility] 12/16 09:14 Order name: Comprehensive Metabolic Panel [facility] 12/16 09:14 Order name: Blood Culture Adult (2) [facility] 12/16 09:14 Order name: Flu [facility] 12/16 09:14 Order name: Strep [facility] 12/16 09:58 Order name: CBC with Automated Diff [facility] 12/16 09:14 Order name: Chest Pa And Lat (2 Views) XRAY [facility] 12/16 10:10 Order name: Comprehensive Metabolic Panel; Complete Time: 10:15 EDMS 12/16 10:11 Order name: Group A Streptococcus Rapid Sc; Complete Time: 10:15 EDMS 12/16 10:12 Order name: RAD; Complete Time: 10:15 EDMS 12/16 10:13 Order name: Influenza Screen (A ; Complete Time: 10:15 EDMS Administered Medications: 09:40 Drug: NS 0.9% 1000 ml Route: IV; Rate: 1 bolus; Site: left antecubital; ae4 11:00 Follow up: IV Status: Completed infusion; IV Intake: 1000ml ae4 09:40 Drug: Motrin 800 mg Route: PO; ae4 12:25 Follow up: Response: Temperature is decreased; Pain is decreased ae4 10:24 Drug: Tamiflu 75 mg Route: PO; ae4 12:25 Follow up: Response: No adverse reaction ae4 10:24 Drug: Zithromax 500 mg Route: PO; ae4 12:26 Follow up: Response: No adverse reaction ae4 10:25 Drug: Rocephin 1 grams Route: IV; Rate: per protocol; Site: left antecubital; ae4 10:38 Follow up: IV Status: Completed infusion; IV Intake: 10ml ae4 10:27 Drug: Rocephin 1 grams Route: IV; Rate: per protocol; Site: left antecubital; ae4 10:33 Follow up: IV Status: Completed infusion; IV Intake: 10ml ae4 Disposition: 12/16/19 10:17 Discharged to Home. Impression: Fever, unspecified, Malaise and fatigue, Acute pharyngitis, Acute upper respiratory infection, unspecified, Elevated white blood cell count. - Condition is Stable. - Discharge Instructions: Fever, Adult, Pharyngitis, Upper Respiratory Infection, Adult, Weakness, Cool Mist Vaporizer, Upper Respiratory Infection, Adult, [id number], Pharyngitis, [id number]-km-[id number], Weakness, Fypb-yu-[id number], Cough, Adult, Sore Throat, Ltmb-aa-Bobq, Fever, Adult, [id number]. - Prescriptions for Tamiflu 75 mg Oral Capsule - take 1 tablet by ORAL route every 12 hours for 5 days; 10 tablet. Guaifenesin AC 10- 100 mg/5 mL Oral Liquid - take 10 milliliters by ORAL route every 4 hours As needed; 160 milliliter. Zithromax 500 mg Oral Tablet - take 1 tablet by ORAL route once daily for 5 days; 5 tablet. - Medication Reconciliation Form, Thank You Letter, Antibiotic Education, Prescription Opioid Use, Work release form form. - Follow up: Richa Cr; When: 2 - 3 days; Reason: Recheck today's complaints, Continuance of care, Re-evaluation by your physician. - Problem is new. - Symptoms have improved. Signatures: Dispatcher [employer] EDVasiliy Barber MD MD cha Smirch, Shelby, RN RN Gage, Santana, RN RN ae4 Corrections: (The following items were deleted from the chart) 10:57 10:17 12/16/2019 10:17 Discharged to Home. Impression: Fever, unspecified; Malaise and ae4 fatigue; Acute pharyngitis; Acute upper respiratory infection, unspecified; Elevated white blood cell count. Condition is Stable. Discharge Instructions: Pharyngitis, Upper Respiratory Infection, Adult, Weakness, Cool Mist Vaporizer, Upper Respiratory Infection, Adult, [id number], Pharyngitis, Uppa-du-Cyyn, Weakness, Czxi-tn-Niuk, Cough, Adult, Sore Throat, Vkfe-ry-Htap, Fever, Adult, Fever, Adult, Eeep-zy-Yzun. Prescriptions for Tamiflu 75 mg Oral Capsule - take 1 tablet by ORAL route every 12 hours for 5 days; 10 tablet, Guaifenesin AC 10-100 mg/5 mL Oral Liquid - take 10 milliliters by ORAL route every 4 hours As needed; 160 milliliter, Zithromax 500 mg Oral Tablet - take 1 tablet by ORAL route once daily for 5 days; 5 tablet. and Forms are Medication Reconciliation Form, Thank You Letter, Antibiotic Education, Prescription Opioid Use. Follow up: Richa Cr; When: 2 - 3 days; Reason: Recheck today's complaints, Continuance of care, Re-evaluation by your physician. Problem is new. Symptoms have improved. chava
--- NOTE | 2019-12-16 10:17 | ER ---
Nurse's Notes [facility] Name: Chon Lopez Age: 59 yrs Sex: Male : 1960 Arrival Date: 12/16/2019 Time: 08:48 Bed 18 Private MD: Richa Cr H Diagnosis: Fever, unspecified;Malaise and fatigue;Acute pharyngitis;Acute upper respiratory infection, unspecified;Elevated white blood cell count Presentation: 12/16 09:00 Presenting complaint: Patient states: body aches, fatigue, congestion and cough that ss began 2 days ago. Unknown fever. Transition of care: patient was not received from another setting of care. Onset of symptoms was December 14, 2019. Risk Assessment: Do you want to hurt yourself or someone else? Patient reports no desire to harm self or others. Initial Sepsis Screen: Does the patient meet any 2 criteria? HR > 90 bpm. Does the patient have a suspected source of infection? No. Patient's initial sepsis screen is negative. Care prior to arrival: None. 09:00 Method Of Arrival: Ambulatory ss 09:00 Acuity: TAWANNA 3 ss Triage Assessment: 09:05 General: Appears See full assessment.. Behavior is calm. ae4 Historical: - Allergies: 09:03 No Known Allergies; ss - Home Meds: 09:03 None [Active]; ss - PMHx: 09:03 None; ss - PSHx: 09:03 Appendectomy; Tonsillectomy; bilateral shoulder repair; ss - Immunization history:: Adult Immunizations up to date. - Coronavirus screen:: The patient has NOT traveled to [place] in the past 14 days. Proceed with normal triage process as indicated. - Social history:: Smoking status: Patient denies any tobacco usage or history of. - Family history:: not pertinent. - Ebola Screening: : Patient denies exposure to infectious person Patient denies travel to an Ebola-affected area in the 21 days before illness onset. Screenin:33 Abuse screen: Denies threats or abuse. Nutritional screening: No deficits noted. ae4 Tuberculosis screening: No symptoms or risk factors identified. Fall Risk None identified. Assessment: 09:05 General: Appears uncomfortable, Behavior is calm, cooperative. Pain: Complains of pain ae4 in hard palate, soft palate, left buccal mucosa and right buccal mucosa. Neuro: Level of Consciousness is awake, alert, obeys commands, Oriented to person, place, time, situation. Cardiovascular: Heart tones S1 S2 present Patient's skin is warm and dry. Respiratory: Airway is patent Respiratory effort is even, unlabored, Respiratory pattern is regular, symmetrical, Breath sounds are clear bilaterally. Respiratory: Reports cough that is productive, reports yellow-brown mucous. GI: Abdomen is round obese, Bowel sounds present X 4 quads. Abd is soft Abdomen is tender to palpation in right upper quadrant Reports nausea. : No signs and/or symptoms were reported regarding the genitourinary system. Denies burning with urination. EENT: Reports nasal congestion nasal discharge. Derm: Skin is dry, Skin is normal. Musculoskeletal: Reports Body aches. 10:19 Reassessment: 2nd set of blood cultures obtained from right hand and sent to lab. ae4 10:28 Reassessment: Patient appears in no apparent distress at this time. Patient and/or ae4 family updated on plan of care and expected duration. Pain level reassessed. IV fluids still infusing. Vital Signs: 08:59 BP 114 / 81; Pulse 119; Resp 20; Temp 100.5; Pulse Ox 96% on R/A; Weight 104.33 kg; ss Height 5 ft. 10 in. (177.80 cm); Pain 4/10; 10:36 BP 120 / 79; Pulse 97; Resp 19; Temp 98.8(O); Pulse Ox 95% on R/A; ae4 08:59 Body Mass Index 33.00 (104.33 kg, 177.80 cm) ED Course: 08:48 Patient arrived in ED. rg4 08:48 Richa Cr DO is Private Physician. rg4 08:51 Vasiliy Mayberry MD is Attending Physician. chava 08:59 Arm band placed on right wrist. ss 09:01 Triage completed. ss 09:05 Patient has correct armband on for positive identification. Pulse ox on. NIBP on. Light ae4 sheet provided.. 09:05 No provider procedures requiring assistance completed. ae4 09:10 Santana Almonte, JENNY is Primary Nurse. ae4 09:40 Inserted saline lock: 20 gauge in left antecubital area, using aseptic technique. Blood ae4 collected. 09:47 Strep Sent. ae4 09:47 Flu Sent. ae4 10:17 Richa Cr DO is Referral Physician. chava 11:00 IV discontinued, intact, bleeding controlled, No redness/swelling at site. Pressure ae4 dressing applied. Administered Medications: 09:40 Drug: NS 0.9% 1000 ml Route: IV; Rate: 1 bolus; Site: left antecubital; ae4 11:00 Follow up: IV Status: Completed infusion; IV Intake: 1000ml ae4 09:40 Drug: Motrin 800 mg Route: PO; ae4 12:25 Follow up: Response: Temperature is decreased; Pain is decreased ae4 10:24 Drug: Tamiflu 75 mg Route: PO; ae4 12:25 Follow up: Response: No adverse reaction ae4 10:24 Drug: Zithromax 500 mg Route: PO; ae4 12:26 Follow up: Response: No adverse reaction ae4 10:25 Drug: Rocephin 1 grams Route: IV; Rate: per protocol; Site: left antecubital; ae4 10:38 Follow up: IV Status: Completed infusion; IV Intake: 10ml ae4 10:27 Drug: Rocephin 1 grams Route: IV; Rate: per protocol; Site: left antecubital; ae4 10:33 Follow up: IV Status: Completed infusion; IV Intake: 10ml ae4 Outcome: 10:17 Discharge ordered by . [facility] 10:57 Patient left the ED. ae4 11:00 Discharged to home ambulatory. ae4 11:00 Condition: stable 11:00 Discharge instructions given to patient, Instructed on discharge instructions, follow up and referral plans. medication usage, Demonstrated understanding of instructions, Prescriptions given X 3. Signatures: Vasiliy Mayberry MD MD cha Smirch, Shelby, RN RN ss Garcia, Rubi rg4 Santana Almonte RN RN ae4 Corrections: (The following items were deleted from the chart) 10:29 10:28 Reassessment: Patient appears in no apparent distress at this time. Patient ae4 and/or family updated on plan of care and expected duration. Pain level reassessed. ae4
[2019-12-16 11:13] VITALS: BP 120/79; TEMP 98.8; O2SAT 95
[2019-12-16 11:23] LABS: Blood Morphology Comment NOT SEEN (NOT SEEN); Platelet Estimate ADEQ; Urine White Blood Cell Casts OK
== END 2019-12-16 10:57 | disposition home or self-care (01) ==
LOC: ER 08:46
DX: J02.9 Acute pharyngitis, unspecified (principal); R53.81 Other malaise; R53.83 Other fatigue; D72.829 Elevated white blood cell count, unspecified; J06.9 Acute upper respiratory infection, unspecified
CPT/HCPCS: 96361; 87040 ×2; 87070; 85025; 36415; 87081; 80053; 87804 ×2; 71046; 96374; 99284; J0696 ×2; J7030

== ENCOUNTER 2021-04-03 11:35 | Observation (INO) | payer BC ==
[2021-04-03 12:11] LABS: Absolute Lymphocytes (CBC) 4.4 K/uL (0.7-4.9); Basophils % 1.2 % (0-1.3); Hematocrit 42.6 % (39.6-49.0); Lymphocytes % 40.8 % (15.3-44.8); MPV 8.1 fL (7.6-11.3); RBC Red Blood Cell Count 4.85 M/uL (4.33-5.43)
[2021-04-03] MEDS ORDERED: FENTANYL CITR 100 MCG/2 ML ONE ×2 (12:22→12:49)
[2021-04-03] MEDS ORDERED: ONDANSETRON 4 MG/2 ML VIAL ONE (12:22)
[2021-04-03] MEDS ORDERED: CEFAZOLIN/SWI 1gm 1 GM/10 ML SYR ONE (12:23)
[2021-04-03 12:27] LABS: Potassium 3.7 mmol/L (3.5-5.1)
[2021-04-03 12:33] LABS: Protime INR 1.02
--- NOTE | 2021-04-03 12:35 | EDPHYS ---
Physician Documentation [facility] Name: Chon Lopez Age: 60 yrs Sex: Male : 1960 Arrival Date: 04/03/2021 Time: 11:36 Bed 30 Private MD: ED Physician Mat Waller HPI: 04/03 12:35 This 60 yrs old Male presents to ER via Ambulatory with complaints of Hand jr8 Injury, Laceration To Hand. 12:35 The complaints affect the left hand diffusely. Onset: The symptoms/episode jr8 began/occurred acutely, today. Modifying factors: The symptoms are alleviated by nothing, the symptoms are aggravated by movement. Associated signs and symptoms: The patient has no apparent associated signs or symptoms. Severity of symptoms: At their worst the symptoms were moderate, in the emergency department the symptoms are unchanged. The patient has not experienced similar symptoms in the past. The patient has not recently seen a physician. Patient stated that he was using a saw and lacerated his distal digits of his left hand. Historical: - Allergies: 11:45 No Known Allergies; ss - PMHx: 11:45 Kidney stones; GERD; ss - PSHx: 11:45 Appendectomy; Tonsillectomy; bilateral shoulder repair; ss - Immunization history:: Last tetanus immunization: unknown. - Social history:: Smoking status: Patient denies any tobacco usage or history of. ROS: 12:35 MS/extremity: Positive for injury or acute deformity, decreased range of motion, jr8 laceration, pain, of the distal 2nd, 3rd, and 4th digits. 12:35 Skin: Positive for laceration(s). 12:35 All other systems are negative. 12:35 Constitutional: Negative for fever, chills, and weight loss. jr8 Exam: 12:35 Cardiovascular: Regular rate and rhythm with a normal S1 and S2. No gallops, murmurs, jr8 or rubs. Normal PMI, no JVD. No pulse deficits. Respiratory: Lungs have equal breath sounds bilaterally, clear to auscultation and percussion. No rales, rhonchi or wheezes noted. No increased work of breathing, no retractions or nasal flaring. Neuro: Awake and alert, GCS 15, oriented to person, place, time, and situation. Cranial nerves II-XII grossly intact. Motor strength 5/5 in all extremities. Sensory grossly intact. 12:35 Skin: Warm, dry with normal turgor. Normal color with no rashes, no lesions, and no evidence of cellulitis. 12:35 Constitutional: The patient appears alert, awake, in obvious pain. 12:35 Musculoskeletal/extremity: Circulation is intact in all extremities. Sensation intact. Patient has deformity with laceration of the distal 2nd digit with nailbed injury. Patient has another laceration with nail bed injury to distal 3rd digit. Patient has smaller laceration to distal 4th digit as well. Rest of hand preserved and with normal ROM. Vital Signs: 12:17 BP 130 / 91; Pulse 70; Resp 18; Pulse Ox 99% on R/A; tr6 12:36 BP 136 / 82; Pulse 76; Resp 18; Temp 97.0; Pulse Ox 100% on R/A; ph 14:01 BP 132 / 87; Pulse 72; Resp 18; Pulse Ox 98% on 3 lpm NC; ph MDM: 11:47 Patient medically screened. [facility] 12:32 Data reviewed: vital signs, nurses notes, lab test result(s), EKG, radiologic studies, jr8 plain films. Data interpreted: Pulse oximetry: on room air is 99 %. Interpretation: normal. Counseling: I had a detailed discussion with the patient and/or guardian regarding: the historical points, exam findings, and any diagnostic results supporting the discharge/admit diagnosis, lab results, radiology results, the need for further work-up and treatment in the hospital. ED course: Dr. Taylor consulted and is bringing patient to surgery . 04/03 11:48 Order name: CBC with Diff; Complete Time: 12:32 8 04/03 11:48 Order name: Basic Metabolic Panel; Complete Time: 12:32 8 04/03 11:48 Order name: XRAY Hand LEFT 3 View; Complete Time: 13:14 8 04/03 11:53 Order name: Protime (+inr); Complete Time: 12:42 8 04/03 11:53 Order name: Ptt, Activated; Complete Time: 12:42 8 04/03 11:48 Order name: IV; Complete Time: 11:57 [facility] 04/03 12:30 Order name: EKG - Nurse/Tech; Complete Time: 12:33 jr8 Administered Medications: 12:16 Drug: Ancef (cefazolin) 1 grams Route: IVPB; Site: right forearm; tr6 12:44 Follow up: Response: No adverse reaction; IV Status: Completed infusion ph 12:16 Drug: fentaNYL (PF) 75 mcg Route: IVP; Site: right forearm; tr6 12:37 Follow up: Response: No adverse reaction ph 12:16 Drug: Zofran (Ondansetron) 4 mg Route: IVP; Site: right forearm; tr6 12:36 Follow up: Response: No adverse reaction ph 12:33 Drug: fentaNYL (PF) 75 mcg Route: IVP; Site: right forearm; ph 12:36 Follow up: Response: No adverse reaction ph 13:54 Drug: morphine 4 mg Route: IVP; Site: right forearm; ph 14:00 Follow up: Response: No adverse reaction ph Disposition: 18:48 Co-signature as Attending Physician, Mat Waller MD I agree with the assessment and kdr plan of care. Disposition: 04/03/21 12:35 Hospitalization ordered by David Taylor for Observation. Preliminary diagnosis are Displaced fracture of distal phalanx of finger, Laceration of distal 2nd, 3rd, and 4th digits with nail bed injury. - Bed requested for Operating Room. - Status is Observation. ph - Condition is Stable. - Problem is new. - Symptoms are unchanged. Signatures: Dispatcher [employer] EDCT Mat Waller MD MD [facility] Joycelyn Bob RN RN Ramsey Silveira PA PA jr8 Rebecca Villa RN RN Christine Stone RN RN tr6 Corrections: (The following items were deleted from the chart) 13:47 12:57 CORONAVIRUS+MR.LAB.BRZ ordered. EDCT EDMS 14:02 12:35 Hospitalization Ordered by David Taylor MD for Observation. Preliminary ph diagnosis is Displaced fracture of distal phalanx of finger; Laceration of distal 2nd, 3rd, and 4th digits with nail bed injury. Bed requested for Operating Room. Status is Observation. Condition is Stable. Problem is new. Symptoms are unchanged. jr8
--- NOTE | 2021-04-03 12:35 | ER ---
Nurse's Notes [facility] Name: Chon Lopez Age: 60 yrs Sex: Male : 1960 Arrival Date: 04/03/2021 Time: 11:36 Bed 30 Private MD: Diagnosis: Displaced fracture of distal phalanx of finger;Laceration of distal 2nd, 3rd, and 4th digits with nail bed injury Presentation: 04/03 11:43 Chief complaint: Patient states: Laceration to 2nd - 4th fingers on L hand sustained by ss table saw approximately 20 minutes ago. Coronavirus screen: Client denies travel out of the [place] in the last 14 days. Ebola Screen: Patient denies exposure to infectious person. Patient denies travel to an Ebola-affected area in the 21 days before illness onset. Initial Sepsis Screen: Does the patient meet any 2 criteria? No. Patient's initial sepsis screen is negative. Does the patient have a suspected source of infection? No. Patient's initial sepsis screen is negative. Risk Assessment: Do you want to hurt yourself or someone else? Patient reports no desire to harm self or others. Onset of symptoms was April 03, 2021. 11:43 Method Of Arrival: Ambulatory 11:43 Acuity: TAWANNA 2 ss Historical: - Allergies: 11:45 No Known Allergies; ss - PMHx: 11:45 Kidney stones; GERD; ss - PSHx: 11:45 Appendectomy; Tonsillectomy; bilateral shoulder repair; ss - Immunization history:: Last tetanus immunization: unknown. - Social history:: Smoking status: Patient denies any tobacco usage or history of. Screenin:17 Abuse screen: Denies threats or abuse. Denies injuries from another. Nutritional ph screening: No deficits noted. Tuberculosis screening: No symptoms or risk factors identified. Fall Risk None identified. Assessment: 12:34 General: Appears in no apparent distress. uncomfortable, Behavior is cooperative, ph appropriate for age. Pain: Complains of pain in right hand. Neuro: Level of Consciousness is awake, alert, obeys commands, Oriented to person, place, time, situation. Cardiovascular: Capillary refill < 3 seconds. Respiratory: Airway is patent Respiratory effort is even, unlabored. Derm: Skin is healthy with good turgor, Skin is pink, warm \T\ dry. Musculoskeletal: Circulation, motion, and sensation intact. Injury Description: Laceration sustained to dorsal aspect of middle phalanx of right index finger, dorsal aspect of middle phalanx of right middle finger and dorsal aspect of middle phalanx of right ring finger. 12:42 Reassessment: Patient appears in no apparent distress at this time. Patient and/or ph family updated on plan of care and expected duration. Pain level reassessed. Patient is alert, oriented x 3, equal unlabored respirations, skin warm/dry/pink. Patient is alert/active/playful, equal unlabored respirations, skin warm/dry/pink. Spo2 noted to drop to 78% RA after IV Fentanyl, placed on NC \T\ 4L and improved to 98%. 14:00 Reassessment: Patient appears in no apparent distress at this time. Patient and/or ph family updated on plan of care and expected duration. Pain level reassessed. Patient is alert, oriented x 3, equal unlabored respirations, skin warm/dry/pink. Report given to OR nurse, pt taken to surgery. Vital Signs: 12:17 BP 130 / 91; Pulse 70; Resp 18; Pulse Ox 99% on R/A; tr6 12:36 BP 136 / 82; Pulse 76; Resp 18; Temp 97.0; Pulse Ox 100% on R/A; ph 14:01 BP 132 / 87; Pulse 72; Resp 18; Pulse Ox 98% on 3 lpm NC; ph ED Course: 11:36 Patient arrived in ED. ds1 11:44 Triage completed. ss 11:45 Arm band placed on right wrist. ss 11:47 Ramsey Silveira PA is PHCP. jr8 11:47 Mat Waller MD is Attending Physician. jr8 11:54 Rebecca Villa, JENNY is Primary Nurse. ph 11:57 Inserted saline lock: 18 gauge in right forearm, using aseptic technique. Blood tr6 collected. 12:06 XRAY Hand LEFT 3 View In Process Unspecified. EDMS 12:17 Patient has correct armband on for positive identification. Placed in gown. Bed in low ph position. Call light in reach. Pulse ox on. NIBP on. Door closed. Noise minimized. Warm blanket given. 12:33 David Taylor MD is Hospitalizing Provider. jr8 12:36 No provider procedures requiring assistance completed. Patient admitted, IV remains in ph place. 12:44 EKG done, by ED staff, reviewed by Ramsey VARGAS. 3 Administered Medications: 12:16 Drug: Ancef (cefazolin) 1 grams Route: IVPB; Site: right forearm; tr6 12:44 Follow up: Response: No adverse reaction; IV Status: Completed infusion ph 12:16 Drug: fentaNYL (PF) 75 mcg Route: IVP; Site: right forearm; tr6 12:37 Follow up: Response: No adverse reaction ph 12:16 Drug: Zofran (Ondansetron) 4 mg Route: IVP; Site: right forearm; tr6 12:36 Follow up: Response: No adverse reaction ph 12:33 Drug: fentaNYL (PF) 75 mcg Route: IVP; Site: right forearm; ph 12:36 Follow up: Response: No adverse reaction ph 13:54 Drug: morphine 4 mg Route: IVP; Site: right forearm; ph 14:00 Follow up: Response: No adverse reaction ph Outcome: 12:35 Decision to Hospitalize by Provider. jr8 14:01 Admitted to OR accompanied by nurse, family with patient, via wheelchair. ph 14:01 Condition: stable 14:01 Instructed on the need for admit. 14:02 Patient left the ED. ph Signatures: Dispatcher [employer] [facility] Beckwith Odalis ds1 Joycelyn Bob RN RN ss Roszak, Josh, PA PA jr8 Rebecca Villa RN RN Sloane Wilkinsonnna [facility] Christine Stone RN RN tr6 Corrections: (The following items were deleted from the chart) 11:45 11:43 Chief complaint: Patient states: Laceration to 2nd - 4th fingers sustained by table saw approximately 20 minutes ago.
--- NOTE | 2021-04-03 12:46 | RAD REPORT ---
EXAM DESCRIPTION: RAD -Hand Left 3 View - 04/03/2021 12:07 pm CLINICAL HISTORY: Left hand pain status post injury FINDINGS: Comminuted fractures second and third distal phalanges. Mildly displaced fracture terminal tuft fourth digit. On the lateral view there is an avulsion fracture involving the base of what appears to be the proxim al phalanx . No dislocation seen Bandage overlies detail somewhat.
[2021-04-03] MEDS ORDERED: MORPHINE 4 MG/ML SYR ONE (14:10)
[2021-04-03] MEDS ORDERED: LIDOCAINE 1% MPF 30 ML VIAL ONE ×2 (14:14→15:22)
[2021-04-03] MEDS ORDERED: Ringers Lactate 1,000 ML IV ONE (14:32)
[2021-04-03 16:10] VITALS: TEMP 97.2
[2021-04-03 16:41] VITALS: BP 133/77; O2SAT 94
[2021-04-03] MEDS ORDERED: HYDROCODONE/APAP 5/325 MG TAB ONE (16:41)
--- NOTE | 2021-04-05 15:27 | OP ---
Surgeon: David Taylor MD Preoperative Diagnosis: Table saw laceration to the left index, middle, ring. Postoperative Diagnoses: Table saw laceration to the left index, middle, ring with tuft fractures of all 3 index, middle, ring, laceration of the ring including nail bed, avulsion of portions of the benji ne and dermal matrix of the middle, laceration of the bone, skin, and nail bed of the index. Procedure Performed: Debridement of skin and subcutaneous tissue of the little finger, nail bed repa ir and a simple closure of wound, removal of nail bed of the middle with debridement of bone, flap cl osure and debridement of index finger with nail bed repair and simple closure. Anesthesia: Digital block 1% xylocaine without epinephrine used for digital block. Procedure In Detail: The patient was placed supine on the operating table. After the block was flaco naye, hand was prepped with Betadine scrub, Betadine paint, dry sterile drapes applied in usual manner . . Hand was placed on the Roto Lock table. The ring finger was approached first. injured. The nail plate was removed with a periosteal elevator and then the edges u lnar side into the nail bed, approximately a 0.5 cm length. These were debrided. Then, attention wa s turned to the middle finger. The bone totally avulsed. Part of the dermal matrix total ly avulsed. The digit could not be salvaged. The bone was squared up shortened. Then the flap was debrided and suitable for placement dorsally. Then attention was turned to the ring and index finger . Periosteal elevator was used to remove the nail plate. The nail bed was lacerated and the bone caballero d chip fracture . The wounds were then all jet lavage irrigated with 3 L of Betadine solut ion. Then we began repair of the ring finger first. 4-0 Prolene simple sutures were used to close t he subcutaneous laceration and the nail bed was repaired with 5-0 PDS in middle finger. After the ti ssue was all debrided, then the flap was advanced, closed with 4-0 prolene horizontal april ress, vertical mattress, simple sutures. Attention was then turned to the index finger. The nail be d was repaired with half buried mattress and 4-0 Prolene and interrupted 5-0 PDS and the laceration w as closed with 4-0 prolene. The digital tourniquet was removed. Dressed with Xeroform, 2-inch Vik , and little finger splint. The patient tolerated procedure well and returned to Recovery. ETHAN/GARY Voice ID: [id number] Report ID: [id number]
== END 2021-04-03 17:06 | disposition home or self-care (01) ==
LOC: ER 11:35 → ERHOLD 15:08
PROVIDERS: ADMIT Specialist; ATTEND Specialist
PROC: 0PBV0ZZ Excision of Left Finger Phalanx, Open Approach (ICD-10-PCS; 2021-04-03)
PROC: 0HQQXZZ Repair Finger Nail, External Approach (ICD-10-PCS; 2021-04-03)
PROC: 0HQQXZZ Repair Finger Nail, External Approach (ICD-10-PCS; 2021-04-03)
PROC: 0HQGXZZ Repair Left Hand Skin, External Approach (ICD-10-PCS; 2021-04-03)
PROC: 0HRGX74 Replacement of Left Hand Skin with Autologous Tissue Substitute, Partial Thickness, External Approach (ICD-10-PCS; principal; 2021-04-03 15:00)
DX: S62.631B Displaced fracture of distal phalanx of left index finger, initial encounter for open fracture (principal); S62.633B Displaced fracture of distal phalanx of left middle finger, initial encounter for open fracture; S62.635B Displaced fracture of distal phalanx of left ring finger, initial encounter for open fracture; W31.2XXA Contact with powered woodworking and forming machines, initial encounter; Z20.822 Contact with and (suspected) exposure to COVID-19; K21.9 Gastro-esophageal reflux disease without esophagitis
CPT/HCPCS: 36415; 80048; 85025; 85610; 85730; 88304; 88311; 93005; 96365; 96375; 99285; G0378; J0690; J2405; J3010; J7120; U0003

== ENCOUNTER 2021-06-19 07:52 | Day surgery (SDC) | payer BC ==
[2021-06-19] MEDS: Ringers Lactate 1,000 ML IV ONE ×2 (08:15→08:38)
[2021-06-19] MEDS ORDERED: CEFAZOLIN/SWI 1gm 1 GM/10 ML SYR ONE (08:26)
[2021-06-19] MEDS ORDERED: propofoL 200 MG/20 ML VIAL IV ONE (08:57)
[2021-06-19] MEDS ORDERED: FENTANYL CITR 100 MCG/2 ML ONE (08:57)
[2021-06-19] MEDS ORDERED: dexAMETHasone 10 MG/ML VIAL ONE (08:57)
[2021-06-19] MEDS ORDERED: MIDAZOLAM HCL 2 MG/2 ML INJ ONE (08:57)
[2021-06-19] MEDS ORDERED: LIDOCAINE 2% MPF 5 ML VIAL ONE (08:58)
[2021-06-19] MEDS ORDERED: ONDANSETRON 4 MG/2 ML VIAL ONE (08:58)
[2021-06-19] MEDS ORDERED: KETOROLAC 30 MG/ML INJ ONE (08:58)
[2021-06-19] MEDS ORDERED: NS 0.9% VIAL 0 ML ONE (08:58)
[2021-06-19] MEDS ORDERED: BUPIVACAINE 0.5% PF 10 ML VIAL ONE (09:08)
[2021-06-19] MEDS ORDERED: LIDOCAINE 1% MPF 30 ML VIAL ONE (10:11)
[2021-06-19 10:23] VITALS: BP 127/81; TEMP 97.1; O2SAT 96
[2021-06-19] MEDS ORDERED: CODEINE 30MG/APAP 300MG TAB ONE (10:39)
--- NOTE | 2021-06-22 06:01 | OP ---
Surgeon: David Taylor MD Preoperative Diagnosis: Open wound of the left index finger. Postoperative Diagnosis: Open wound of the left index finger. Procedures Performed: 1.Debridement of skin, subcutaneous tissue, and bone. 2.Flap closure and ablation of the nail plate. Anesthesia: Local. Procedure In Detail: After satisfactory local, left hand was prepped with Betadine scrub and paint. Dry sterile drapes were applied in the usual manner. Periosteal elevator was used to remove the katherine l plate and then scalpel was used to make incision on the previous incision from the previous saw wou nd. There was granulation tissue present. There were retained bone fragments and portion of the katherine l plate. This was removed, nail bed ablated, and then the flap was elevated, and the implants were r otated in position, sewn in place with 4-0 Prolene in horizontal mattress simple sutures. Dressed wi th Xeroform. GH/MODL Voice ID: [id number] Report ID: [id number]
== END 2021-06-19 11:23 | disposition home or self-care (01) ==
LOC: OR 07:52
PROVIDERS: ATTEND Specialist
PROC: 0HXGXZZ Transfer Left Hand Skin, External Approach (ICD-10-PCS; 2021-06-19)
PROC: 0PBV0ZZ Excision of Left Finger Phalanx, Open Approach (ICD-10-PCS; 2021-06-19)
PROC: 0HBQXZZ Excision of Finger Nail, External Approach (ICD-10-PCS; principal; 2021-06-19 09:00)
DX: S61.301A Unspecified open wound of left index finger with damage to nail, initial encounter (principal); Z20.822 Contact with and (suspected) exposure to COVID-19
CPT/HCPCS: 88304; 11750; 14040; U0003; J2250; J3010; J1100; J0690; J7120; J2405; J2704

== ENCOUNTER 2021-10-15 00:11 | Inpatient (IN) | payer BC ==
[2021-10-15 01:12] LABS: Absolute Lymphocytes (CBC) 2.2 K/uL (0.7-4.9); Basophils % 0.6 % (0-1.3); Hematocrit 43.4 % (39.6-49.0); Lymphocytes % 15.8 % (15.3-44.8); MPV 7.9 fL (7.6-11.3); RBC Red Blood Cell Count 4.96 M/uL (4.33-5.43)
[2021-10-15 01:21] LABS: Albumin 3.4 g/dL (3.4-5.0); Bilirubin Direct 0.1 mg/dL (0-0.2); Bilirubin Total 0.3 mg/dL (0.2-1.0); Potassium 3.8 mmol/L (3.5-5.1); Protein, Total 8.3 g/dL (6.4-8.2)
[2021-10-15] MEDS ORDERED: ONDANSETRON 4 MG/2 ML VIAL ONE ×2 (01:36→02:55)
[2021-10-15] MEDS ORDERED: MORPHINE 4 MG/ML SYR ONE (01:36)
[2021-10-15 02:34] LABS: Urine Blood Negative (Negative); Urine Glucose Negative (Negative); Urine Protein Trace (Negative)
--- NOTE | 2021-10-15 02:35 | EDPHYS ---
Physician Documentation [facility] Name: Chon Lopez Age: 60 yrs Sex: Male : 1960 Arrival Date: 10/15/2021 Time: 00:14 Bed 4 Private MD: ED Physician Moses Jara HPI: 10/15 01:30 This 60 yrs old Male presents to ER via Ambulatory with complaints of Abdominal Pain. jr8 01:30 Modifying factors: The symptoms are alleviated by nothing, the symptoms are aggravated jr8 by nothing. Severity of pain: At its worst the pain was moderate in the emergency department the pain is unchanged. It is unknown whether or not the patient has had similar symptoms in the past. The patient has not recently seen a physician. 60-year-old male presents with generalized abdominal pain onset yesterday. Patient describes the pain is sharp and stabbing and began having back pain and nausea today. Patient denies shortness of breath, chest pain, or fever. Patient has a history of GERD and renal stones.. Historical: - Allergies: 00:31 No Known Allergies; sm5 - PMHx: 00:31 GERD; Kidney stones; sm5 - Immunization history:: Adult Immunizations up to date. - Social history:: Smoking status: Patient denies any tobacco usage or history of. ROS: 01:30 Eyes: Negative for injury, pain, redness, and discharge, ENT: Negative for injury, jr8 pain, and discharge, Neck: Negative for injury, pain, and swelling, Cardiovascular: Negative for chest pain, palpitations, and edema, Respiratory: Negative for shortness of breath, cough, wheezing, and pleuritic chest pain, Back: Negative for injury and pain, MS/Extremity: Negative for injury and deformity, Skin: Negative for injury, rash, and discoloration, Neuro: Negative for headache, weakness, numbness, tingling, and seizure. 01:30 Abdomen/GI: Positive for abdominal pain, Negative for nausea, vomiting, and diarrhea. Exam: 01:30 Constitutional: This is a well developed, well nourished patient who is awake, alert, jr8 and in no acute distress. Cardiovascular: Regular rate and rhythm with a normal S1 and S2. No gallops, murmurs, or rubs. Normal PMI, no JVD. No pulse deficits. Respiratory: Lungs have equal breath sounds bilaterally, clear to auscultation and percussion. No rales, rhonchi or wheezes noted. No increased work of breathing, no retractions or nasal flaring. Skin: Warm, dry with normal turgor. Normal color with no rashes, no lesions, and no evidence of cellulitis. MS/ Extremity: Pulses equal, no cyanosis. Neurovascular intact. Full, normal range of motion. Neuro: Awake and alert, GCS 15, oriented to person, place, time, and situation. Cranial nerves II-XII grossly intact. Motor strength 5/5 in all extremities. Sensory grossly intact. 01:30 Abdomen/GI: Inspection: abdomen appears normal, Bowel sounds: active, all quadrants, Palpation: soft, in all quadrants, mild abdominal tenderness, in the left lower quadrant, mass, is not appreciated, rebound tenderness, is not appreciated, voluntary guarding, is not appreciated, involuntary guarding, is not appreciated, no appreciated organomegaly, Indicators: McBurney's point is not tender, Enriquez's sign is negative, Rovsing's sign is negative, Liver: tenderness, is not appreciated. 01:30 Back: ROM is normal, normal spinal alignment noted, CVA tenderness, that is mild, is noted on the left, vertebral tenderness, is not appreciated. Vital Signs: 00:23 BP 174 / 102; Pulse 79; Resp 16; Temp 98.1; Pulse Ox 100% ; lt3 01:30 BP 157 / 101; Pulse 76; Resp 19; Pulse Ox 99% on R/A; sm5 02:22 BP 143 / 99; Pulse 76; Resp 17; Pulse Ox 96% on 4 lpm NC; sm5 03:43 BP 155 / 97; Pulse 74; Resp 18 S; Pulse Ox 96% on R/A; as6 04:53 BP 149 / 97; Pulse 74; Resp 18 S; Pulse Ox 97% on 2 lpm NC; as6 MDM: 00:44 Patient medically screened. jr8 01:30 Data reviewed: vital signs, nurses notes, lab test result(s), radiologic studies, CT jr8 scan. Data interpreted: Pulse oximetry: on room air is 100 %. Interpretation: normal. Counseling: I had a detailed discussion with the patient and/or guardian regarding: the historical points, exam findings, and any diagnostic results supporting the discharge/admit diagnosis, lab results, radiology results. 10/15 00:38 Order name: Basic Metabolic Panel; Complete Time: 01:23 jr8 10/15 00:38 Order name: CBC with Diff; Complete Time: 01:23 jr8 10/15 00:38 Order name: Hepatic Function; Complete Time: 01:23 jr8 10/15 00:38 Order name: Lipase; Complete Time: 01:23 jr8 10/15 02:34 Order name: Urine Dipstick-Ancillary; Complete Time: 02:34 EDUT 10/15 03:42 Order name: COVID-19 SARS RT PCR (Document "Date of Onset" if Symptomatic) as6 10/15 00:38 Order name: IV Saline Lock; Complete Time: 00:47 jr8 10/15 01:23 Order name: CT Abd/Pelvis - IV Contrast Only jr8 10/15 02:51 Order name: CONS Physician Consult EDUT 10/15 04:39 Order name: SARS-COV-2 RT PCR EDUT 10/15 00:38 Order name: Labs collected and sent; Complete Time: 00:47 jr8 10/15 00:44 Order name: Urine Dipstick-Ancillary (obtain specimen); Complete Time: 02:31 jr8 Administered Medications: 01:44 Drug: morphine 4 mg Route: IVP; Site: right forearm; sm5 05:59 Follow up: Response: No adverse reaction; RASS: Alert and Calm (0) as6 01:44 Drug: Zofran (Ondansetron) 4 mg Route: IVP; Site: right forearm; sm5 05:59 Follow up: Response: No adverse reaction as6 03:26 Drug: Zofran (Ondansetron) 4 mg Route: IVP; Site: left hand; sm5 05:58 Follow up: Response: No adverse reaction as6 03:51 Drug: Mineral Oil 30 ml Route: PO; as6 05:59 Follow up: Response: No adverse reaction as6 Disposition: 19:46 Co-signature as Attending Physician, Moses Jara MD I agree with the assessment and sp3 plan of care. Disposition Summary: 10/15/21 02:34 Hospitalization Ordered Hospitalization Status: Inpatient Admission jr8 Provider: Poncho Matson jr8 Location: Telemetry/MedSurg (Inpatient) jr8 Condition: Stable jr8 Problem: new jr8 Symptoms: have improved jr8 Bed/Room Type: Standard jr8 Room Assignment: 221(10/15/21 04:52) eb1 Diagnosis - Small Bowel Obstruction jr8 Forms: - Medication Reconciliation Form jr8 - SBAR form jr8 Signatures: Dispatcher [employer] EDRamsey Garcia PA PA jr8 Pam Fong RN RN eb1 Moses Jara MD MD sp3 Rafi George RN RN as6 Kristel Barahona RN RN sm5 Corrections: (The following items were deleted from the chart) 04:52 02:34 jr8 eb1
--- NOTE | 2021-10-15 02:35 | ER ---
Nurse's Notes [facility] Name: Chon Lopez Age: 60 yrs Sex: Male : 1960 Arrival Date: 10/15/2021 Time: 00:14 Bed 4 Private MD: Diagnosis: Small Bowel Obstruction Presentation: 10/15 00:30 Chief complaint: Patient states: he has been having upper/mid abd pain since this sm5 morning but has gotten worse. vomited once prior to arrival. Coronavirus screen: Vaccine status: Patient reports receiving the 2nd dose of the covid vaccine. Ebola Screen: Patient negative for fever greater than or equal to 101.5 degrees Fahrenheit, and additional compatible Ebola Virus Disease symptoms Patient denies exposure to infectious person. Patient denies travel to an Ebola-affected area in the 21 days before illness onset. Initial Sepsis Screen: Does the patient meet any 2 criteria? No. Patient's initial sepsis screen is negative. Does the patient have a suspected source of infection? No. Patient's initial sepsis screen is negative. Risk Assessment: Do you want to hurt yourself or someone else? Patient reports no desire to harm self or others. Onset of symptoms was October 14, 2021. 00:30 Method Of Arrival: Ambulatory 5 00:30 Acuity: TAWANNA 3 sm5 Triage Assessment: 00:32 General: Appears uncomfortable, Behavior is cooperative. Pain: Complains of pain in sm5 abdomen. Neuro: No deficits noted. Level of Consciousness is awake, alert, Oriented to person, place, time, situation. Cardiovascular: No deficits noted. Capillary refill < 3 seconds Patient's skin is warm and dry. Respiratory: No deficits noted. Airway is patent Trachea midline Respiratory effort is even, unlabored. GI: Abdomen is flat, non-distended, Abd is soft Abdomen is tender to palpation in epigastric area and right upper quadrant Reports vomiting. Historical: - Allergies: 00:31 No Known Allergies; sm5 - PMHx: 00:31 GERD; Kidney stones; sm5 - Immunization history:: Adult Immunizations up to date. - Social history:: Smoking status: Patient denies any tobacco usage or history of. Screenin:32 Abuse screen: Denies threats or abuse. Denies injuries from another. Nutritional sm5 screening: No deficits noted. Tuberculosis screening: No symptoms or risk factors identified. Fall Risk No fall in past 12 months (0 pts). No secondary diagnosis (0 pts). IV access (20 points). Ambulatory Aid- None/Bed Rest/Nurse Assist (0 pts). Gait- Normal/Bed Rest/Wheelchair (0 pts) Mental Status- Oriented to own ability (0 pts). Total King Fall Scale indicates No Risk (0-24 pts). Assessment: 10/14 00:33 General: General: Appears uncomfortable, Behavior is cooperative. Pain: Complains of sm5 pain in abdomen. Neuro: Level of Consciousness is awake, alert, Oriented to person, place, time, situation. Cardiovascular: No deficits noted. Capillary refill < 3 seconds Patient's skin is warm and dry. Respiratory: No deficits noted. Airway is patent Trachea midline Respiratory effort is even, unlabored. GI: Abdomen is flat, non-distended, Abd is soft Abdomen is tender to palpation Reports vomiting. 10/15 00:33 GI: Bowel sounds present X 4 quads. sm5 Vital Signs: 00:23 BP 174 / 102; Pulse 79; Resp 16; Temp 98.1; Pulse Ox 100% ; lt3 01:30 BP 157 / 101; Pulse 76; Resp 19; Pulse Ox 99% on R/A; sm5 02:22 BP 143 / 99; Pulse 76; Resp 17; Pulse Ox 96% on 4 lpm NC; sm5 03:43 BP 155 / 97; Pulse 74; Resp 18 S; Pulse Ox 96% on R/A; as6 04:53 BP 149 / 97; Pulse 74; Resp 18 S; Pulse Ox 97% on 2 lpm NC; as6 ED Course: 00:14 Patient arrived in ED. bp1 00:31 Triage completed. sm5 00:31 Arm band placed on right wrist. sm5 00:31 Patient has correct armband on for positive identification. Bed in low position. Call sm5 light in reach. Side rails up X2. 00:33 No provider procedures requiring assistance completed. sm5 00:37 Ramsey Silveira PA is PHCP. jr8 00:37 Moses Jara MD is Attending Physician. jr8 00:43 Rafi George RN is Primary Nurse. as6 01:10 Inserted saline lock: 20 gauge in right forearm, using aseptic technique. Blood sm5 collected. 02:05 CT Abd/Pelvis - IV Contrast Only In Process Unspecified. EDMS 02:33 Poncho Matson is Hospitalizing Provider. jr8 03:51 COVID-19 SARS RT PCR (Document "Date of Onset" if Symptomatic) Sent. as6 05:58 Patient admitted, IV remains in place. as6 Administered Medications: 01:44 Drug: morphine 4 mg Route: IVP; Site: right forearm; sm5 05:59 Follow up: Response: No adverse reaction; RASS: Alert and Calm (0) as6 01:44 Drug: Zofran (Ondansetron) 4 mg Route: IVP; Site: right forearm; sm5 05:59 Follow up: Response: No adverse reaction as6 03:26 Drug: Zofran (Ondansetron) 4 mg Route: IVP; Site: left hand; sm5 05:58 Follow up: Response: No adverse reaction as6 03:51 Drug: Mineral Oil 30 ml Route: PO; as6 05:59 Follow up: Response: No adverse reaction as6 Outcome: 02:34 Decision to Hospitalize by Provider. jr8 05:58 Admitted to Med/surg accompanied by nurse, via wheelchair, room 221, with chart, Report as6 called to Taina 05:58 Condition: stable 05:59 Patient left the ED. as6 Signatures: Dispatcher [employer] EDMS Ramsey Silveira PA PA jr8 Maricarmen Weathers Ashby RN RN as6 Kristel Barahona RN RN sm5 Lynn Ordonez 3 Corrections: (The following items were deleted from the chart) 01:12 00:33 GI: Bowel sounds present X 4 quads. sm5 5
[2021-10-15] MEDS ORDERED: MINERAL OIL 30 ML UCUP ONE (03:05)
--- NOTE | 2021-10-15 03:27 | P.HP ---
Certification for Inpatient Patient admitted to: Inpatient With expected LOS: <2 Midnights Patient will require the following post-hospital care: None Practitioner: I am a practitioner with admitting privileges, knowledge of patient current condition, hospital course, and medical plan of care. Services: Services provided to patient in accordance with Admission requirements found in Title 42 Section 412.3 of the Code of Federal Regulations Patient History Date of Service: 10/15/21 Primary Care Provider: Tayo Reason for admission: SBO History of Present Illness: Mr. Lopez is a 60 yo M who presents with one day of diffuse abdominal pain that has continued to get worse. He reports nausea and vomiting. Last meal was yesterday, last BM was 2 days ago. Pain at bedside is a 2/10 after receiving morphine. He has had a partial SBO in the past. WBC 13.7 Glu 146 Allergies No Known Allergies Allergy (Verified 06/18/21 12:54) Home Medications: Ibuprofen [Motrin] 600 mg PO PRN PRN 06/18/21 - Past Medical/Surgical History Diabetic: No -: history of SBO -: Kidney Stones -: Appendectomy - Family History Family History: Reviewed- Non-Contributory - Social History Smoking Status: Never smoker Alcohol use: No CD- Drugs: No Caffeine use: No Place of Residence: Home Review of Systems 10-point ROS is otherwise unremarkable General: Unremarkable Eyes: Unremarkable ENT: Unremarkable Respiratory: Unremarkable Cardiovascular: Unremarkable Gastrointestinal: Nausea, Vomiting, Abdominal Pain Genitourinary: Unremarkable Musculoskeletal: Unremarkable Integumentary: Unremarkable Neurological: Unremarkable Lymphatics: Unremarkable Physical Examination - Physical Exam General: Alert, In no apparent distress HEENT: Atraumatic, PERRLA, Mucous membr. moist/pink, EOMI, Sclerae nonicteric Neck: Supple, 2+ carotid pulse no bruit, No LAD, Without JVD or thyroid abnormality Respiratory: Clear to auscultation bilaterally, Normal air movement Cardiovascular: Regular rate/rhythm, Normal S1 S2 Gastrointestinal: Normal bowel sounds, Tenderness Musculoskeletal: No tenderness Integumentary: No rashes Neurological: Normal gait, Normal speech, Normal strength at 5/5 x4 extr, Normal tone, Normal affect Lymphatics: No axilla or inguinal lymphadenopathy - Studies Laboratory Data (last 24 hrs) 10/15/21 00:45: WBC 13.70 H, Hgb 14.6, Hct 43.4, Plt Count 426 H 10/15/21 00:45: Sodium 138, Potassium 3.8, BUN 15, Creatinine 1.08, Glucose 146 H, Total Bilirubin 0.3, AST 20, ALT 23, Alkaline Phosphatase 69, Lipase 56 L Assessment and Plan - Problems (Diagnosis) (1) SBO (small bowel obstruction) Current Visit: Yes Status: Acute - Plan surgery consulted NPO continue IV Fluids, IV Zosyn pain management and antiemetics as needed hydralazine PRN for BP spikes DVT ppx Discharge Plan: Home Plan to discharge in: 48 Hours - Advance Directives Does patient have a Living Will: No Does patient have a Durable POA for Healthcare: No - Code Status/Comfort Care Code Status Assessed: Yes (full code ) Critical Care: No Time Spent Managing Pts Care (In Minutes): 70
[2021-10-15] MEDS ORDERED: HYDRALAZINE HCL 20 MG/ML VIAL IV PRN (04:26)
[2021-10-15] MEDS ORDERED: ONDANSETRON 4 MG/2 ML VIAL IV PRN (04:26)
[2021-10-15] MEDS ORDERED: MORPHINE 2 MG/ML SYR IV PRN (04:26)
[2021-10-15 06:23] VITALS: O2SAT 97
[2021-10-15] MEDS: NA CHLORIDE 0.9% 1,000 ML IV SCH ×2 (06:36→14:26)
[2021-10-15] MEDS: INSULIN -REGULAR HUMAN 50 UNIT/0.5 ML ML SQ SCH ×4 (07:30→20:58)
[2021-10-15] MEDS: PIPER TAZO 3.375 GM in NA CHLORIDE 0.9% 100 ML IV SCH ×2 (08:17→16:46)
[2021-10-15 08:59] VITALS: BMI 29.4
[2021-10-15] MEDS ORDERED: KCL 20 MEQ/100 mL IVPB 20 MEQ/100 ML BAG IV ONE (09:00)
--- NOTE | 2021-10-15 10:16 | P.PN ---
Date of Service: 10/15/21 Patient seen and examined. Patient reports vomiting once after hospitalization. He stated he passed flatus. No bowel movement. He reports intermittent abdominal pain. Diagnosis: Small Bowel obstruction Plan: General surgery consult. Supportive measures Serial abdominal examination. NG tube to suction if patient continues to vomit. Pain management as needed.
--- NOTE | 2021-10-15 10:24 | RAD REPORT ---
EXAM DESCRIPTION: CT - Abdomen Pelvis W Contrast - 10/15/2021 6:26 am COMPARISON: CT abdomen pelvis report March 2019 CLINICAL HISTORY: Abdominal pain TECHNIQUE: Multiple helical axial images were obtained through the abdomen and pelvis using intraven ous contrast. Coronal and sagittal reformatted images were obtained. All CT scans at this facility use dose modulation, iterative reconstruction, and/or weight-based dosi ng when appropriate to reduce radiation dose to as low as reasonably achievable. FINDINGS: Lung bases: There is a 4 mm nodule in the left lower lobe (series 401, image 10). Liver: There is low-attenuation suggesting fatty changes. Gallbladder/biliary: Appears unremarkable Pancreas: Unremarkable. No evidence of ductal enlargement. Spleen: Appears unremarkable. No splenomegaly. Adrenals: Unremarkable. Kidneys and ureters: No evidence of hydronephrosis. Normal enhancement. Bladder: Unremarkable. Pelvic organs: Unremarkable. Bowel: Several dilated small bowel loops are demonstrated containing air-fluid levels. There is a pro bable transition between dilated and decompressed small bowel in the right lower abdomen (series 501, image 60) suggestive of small bowel obstruction. Colonic diverticula are present. No evidence of bow el wall thickening. Appendix is not well-seen. Vasculature: Unremarkable. Peritoneum: No free air. No significant free fluid. Lymph nodes: Unremarkable. Soft tissues: There is a tiny ventral midline abdominal hernia containing fat above the umbilicus. Bones: Degenerative changes of the spine noted. IMPRESSION: 1. Findings suggestive of small bowel obstruction. 2. Hepatic steatosis. 3. Colonic diverticulosis. 4. Left lower lobe 4 mm nodule. For a high-risk patient, optional follow-up chest CT in one year ca n be obtained using Fleischner Society criteria. Electronically signed by: Dago Medel MD 10/15/2021 2:53 AM UPPER CASER Due to temporary technical issues with the PACS/Fluency reporting system, reports are being signed by the in house radiologist without review as a courtesy to ensure prompt reporting. The interpreting r adiologist is fully responsible for the content of the report.
--- NOTE | 2021-10-15 13:14 | CON ---
Date of Consultation: 10/15/2021 Brief History Of Present Illness: The patient is a 60-year-old male with a history of open appendectomy when he was a young child who presents with a recurrent small-bowel obstruction. He st ates he has had 1 episode before in the past of similar type. It was reported as significant abdomin al pain at 10/10, buckling over at home, associated with nausea and vomiting x1 episode. His last me al was yesterday. His last bowel was 2 days prior. He has been passing gas since being here in the hospital. His pain is essentially gone and says it is maybe between somewhat 0 and 1. At this point , he has passed significant amount of gas. Past Medical History: Significant for small bowel obstruction, nephrolithiasis. Past Surgical History: Includes appendectomy. Allergies: NO KNOWN DRUG ALLERGIES. Home Medications: Include ibuprofen. Social History: Smoking, alcohol, recreational drug use are denied. He is currently employed and ma rried. His is at the bedside. Review of Systems: Ten-point review of systems other than HPI, denies. Physical Examination: Vital Signs: At the time of examination vital signs were a BMI of 29.4, blood pressure 140/90, pulse 74, respirations 20, temperature 98.5, SpO2 96% on room air. General: He is awake, alert, oriented. Psychiatric: Appropriate. Conversive. HEENT: Normocephalic. Sclerae anicteric. Mucous membranes moist. Oropharynx clear. Neck: Supple without JVD. Chest: Normal expansion and excursion. Cardiovascular: Regular rate and rhythm. Pulmonary: Clear to auscultation bilaterally. Abdomen: Soft, nontender, nondistended. No rebound or guarding. No focal peritonitis. Well-healed lower quadrant open appendectomy scar is evident. Extremities: No clubbing, cyanosis, or edema. Skin: Warm and dry. Laboratory Data: Revealed a white blood cell count of 13.7, hemoglobin 14.6, hematocrit 43.4, platel et count was 426. Neutrophils were 72%. His sodium 138, potassium 3.8, chloride 104, carbon dioxide 24, BUN 15, creatinine 1.08, glucose was 146, lipase is 56. UA was essentially negative. He had im aging performed, which included a CT abdomen and pelvis, officially read as findings suggestive of sm all-bowel obstruction, hepatic steatosis, colonic diverticulosis. Left lower lobe pulmonary nodule. CT in 1 year is recommended. Bowel, several dilated small bowel loops demonstrated continued air-fl uid levels and probable transition between dilated and decompressed bowel in the right lower abdomen suggestive of small-bowel obstruction. No evidence of bowel wall thickening. Appendix is not seen. Assessment And Plan: This is a 60-year-old male who comes in with signs and symptoms of partial smal l-bowel obstruction, now with significant improvement in partial resolution. 1.IV fluid hydration. 2.Start clear liquid diet and advance as tolerated. 3.Serial abdominal exams. 4.Continue medical management. 5.The patient will need an outpatient colonoscopy. I have explained the risks, benefits, alternativ es of the above stated plan. The patient agrees to proceed as indicated. SU/GARY Voice ID: [id number] Report ID: [id number]
[2021-10-16] MEDS: PIPER TAZO 3.375 GM in NA CHLORIDE 0.9% 100 ML IV SCH ×3 (00:52→17:00)
[2021-10-16] MEDS: NA CHLORIDE 0.9% 1,000 ML IV SCH ×2 (00:53→10:26)
[2021-10-16 06:18] LABS: Absolute Lymphocytes (CBC) 1.9 K/uL (0.7-4.9); Basophils % 0.8 % (0-1.3); Hematocrit 39.8 % (39.6-49.0); Lymphocytes % 27.8 % (15.3-44.8); MPV 7.5 fL (7.6-11.3); RBC Red Blood Cell Count 4.45 M/uL (4.33-5.43)
[2021-10-16 06:34] LABS: Albumin 2.8 g/dL (3.4-5.0); Bilirubin Total 0.4 mg/dL (0.2-1.0); Magnesium 2.3 mg/dL (1.8-2.4); Phosphorus 2.4 mg/dL (2.5-4.9); Potassium 3.9 mmol/L (3.5-5.1); Protein, Total 6.9 g/dL (6.4-8.2)
[2021-10-16 06:47] LABS: Blood Morphology Comment NOT SEEN (NOT SEEN); Platelet Estimate ADEQ; Platelets, Giant FEW
[2021-10-16] MEDS: INSULIN -REGULAR HUMAN 50 UNIT/0.5 ML ML SQ SCH ×3 (07:30→16:30)
[2021-10-16] MEDS: POTASS/SODIUM PHOSPHATE 1 PKT POWD.PACK PO SCH ×3 (08:55→12:51)
[2021-10-16] MEDS ORDERED: POTASSIUM CL SA 10 MEQ TAB PO ONE (09:00)
--- NOTE | 2021-10-16 12:19 | P.DS ---
Admission Date: 10/15/21 Discharge Date: 10/16/21 Primary Care Provider: Tayo Disposition: ROUTINE DISCHARGE Discharge Condition: FAIR Reason for Admission: SBO - Problems (1) SBO (small bowel obstruction) Current Visit: Yes Status: Acute Brief History of Present Illness: Mr. Lopez is a 60 yo M who presents with one day of diffuse progressive abdominal pain, associated with nausea and vomiting. Last meal was a day prior to the admission, last BM was [address] abdomen and pelvis done in the emergency department demonstrate small bowel obstruction. Patient has a history of partial SBO in the past. WBC 13.7 Glu 146. Patient admitted for further management. Hospital Course: Patient admitted to the medical floor and treated with supportive measures including IV fluid, antiemetics, and IV Zosyn for possible bacterial enterocolitis. He did not vomit during the hospital stay and did not require NG tube insertion. He was seen in consultation by general surgery Dr. Spivey and patient started on clear liquid diet. He tolerated clear liquid diet, abdomen was benign, diet was advanced to soft diet which he tolerated. He reports passing flatus several times yesterday and had to soft to loose bowel movements. Patient deemed stable for discharge per Dr. Gibbs. Vital Signs/Physical Exam: Temp Pulse Resp BP Pulse Ox 97.2 F 62 18 135/80 98 10/16/21 08:00 10/16/21 08:00 10/16/21 08:00 10/16/21 08:00 10/16/21 08:00 General: Alert, In no apparent distress, Oriented x3 HEENT: Mucous membr. moist/pink, Sclerae nonicteric Neck: Supple, JVD not distended Respiratory: Clear to auscultation bilaterally, Normal air movement Cardiovascular: No edema, Regular rate/rhythm, Normal S1 S2 Gastrointestinal: Normal bowel sounds, Soft and benign, Non-distended, No tenderness Musculoskeletal: No swelling Integumentary: No rashes Neurological: Normal strength at 5/5 x4 extr Laboratory Data at Discharge: WBC 6.80 K/uL (4.3-10.9) D 10/16/21 06:05 Hgb 12.9 g/dL (13.6-17.9) L 10/16/21 06:05 Hct 39.8 % (39.6-49.0) 10/16/21 06:05 Plt Count 358 K/uL (152-406) 10/16/21 06:05 Sodium 141 mmol/L (136-145) 10/16/21 06:05 Potassium 3.9 mmol/L (3.5-5.1) 10/16/21 06:05 BUN 10 mg/dL (7-18) 10/16/21 06:05 Creatinine 0.99 mg/dL (0.55-1.3) 10/16/21 06:05 Glucose 97 mg/dL (74-106) 10/16/21 06:05 Phosphorus 2.4 mg/dL (2.5-4.9) L 10/16/21 06:05 Magnesium 2.3 mg/dL (1.8-2.4) 10/16/21 06:05 Total Bilirubin 0.4 mg/dL (0.2-1.0) 10/16/21 06:05 AST 17 U/L (15-37) 10/16/21 06:05 ALT 23 U/L (12-78) 10/16/21 06:05 Alkaline Phosphatase 48 U/L (45-117) 10/16/21 06:05 Lipase 56 U/L (73-393) L 10/15/21 00:45 Home Medications: Pantoprazole [Protonix Tab*] 1 tab PO DAILY 10/15/21 Ciprofloxacin HCl [Cipro] 500 mg PO BID #8 tablet 10/16/21 metroNIDAZOLE [Flagyl] 500 mg PO TID #12 tablet 10/16/21 New Medications: Ciprofloxacin HCl [Cipro] 500 mg PO BID #8 tablet metroNIDAZOLE [Flagyl] 500 mg PO TID #12 tablet Physician Discharge Instructions: Progressed from soft diet to solid diet as tolerated. Activity: Ad amberly Followup: Richa Cr DO, DO [Primary Care Provider] - Time spent managing pt's care (in minutes): 33
--- NOTE | 2021-10-16 14:29 | P.PN ---
Subjective Date of Service: 10/16/21 Primary Care Provider: Tayo Chief Complaint: SBO Subjective: Improving (Patient is pain free, tolerated diet, has bowel movement and passing gas) Physical Examination - Vital Signs Temperature: 97.2 F Blood Pressure: 135/80 Pulse: 62 Respirations: 18 Pulse Ox (%): 98 - Physical Exam General: Alert, In no apparent distress, Cooperative Gastrointestinal: Soft and benign, Non-distended, W/out succussion splash, No ascites, No tenderness, No masses, No rebound, No guarding Assessment And Plan - Plan - Resolving PSBO - will need outpatient colonoscopy - advance diet to soft, if tolerated may DC home from surgical standpoint - follow up in 1-2 weeks - low residue diet
[2021-10-16 17:40] VITALS: BP 119/70; TEMP 98.1
== END 2021-10-16 17:16 | disposition home or self-care (01) | DRG 390 ==
LOC: ER 00:11 → ERHOLD 02:54 → 2ND 05:00
PROVIDERS: ADMIT Internal Medicine; ATTEND Internal Medicine
DX: K56.600 Partial intestinal obstruction, unspecified as to cause (principal); K21.9 Gastro-esophageal reflux disease without esophagitis; K52.89 Other specified noninfective gastroenteritis and colitis; Z90.49 Acquired absence of other specified parts of digestive tract; Z79.899 Other long term (current) drug therapy; Z20.822 Contact with and (suspected) exposure to COVID-19
CPT/HCPCS: 36415; 74177; 80048; 80053; 80076; 81003; 82947; 83036; 83690; 83735; 84100; 85025; 99285; J2270; J2405; J2543; J3480; J7030; Q9967; U0003